=== PATIENT | male | born 2005 | race Caucasian/White ===

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

== ENCOUNTER 2024-11-15 00:20 | Emergency (ER) | payer OTHER, SELFPAY ==
--- NOTE | ~2024-11-15 | CT_ITS ---
EXAMINATION: CT brain wo con DATE: 11/15/2024 03:21 INDICATION: Head injury. TECHNIQUE: Computed tomography (CT) of the head was performed without intravenous contrast. The mA wa s adjusted according to patient size. Iterative reconstruction technique was employed. The dose-lengt h product was 681.00 mGy-cm. COMPARISON: None FINDINGS: There is no intracranial hemorrhage, acute infarction, or abnormal intracranial mass lesion . The ventricles are normal in size. The orbits are normal. There is mild mucosal thickening in the p aranasal sinuses. The mastoid air cells are normal. IMPRESSION: 1. Normal brain. Reviewed, dictated and finalized at location A. CHBOARD INSPECTOR IMPRESSION: 1. Normal brain.
[2024-11-15 00:23] VITALS: BP 145/68; PULSE 102; RESP 15; TEMP 36.5; O2SAT 100
--- NOTE | 2024-11-15 02:35 | ED.GENADULT ---
HPI - General Adult General Chief complaint: Head Injury Stated complaint: concussion Time Seen by Provider: 11/15/24 02:11 History of Present Illness HPI narrative: 18-year-old male presenting to the emergency department for evaluation for a head injury. Patient was snowboarding he wiped out and struck his head. Patient was not wearing a helmet. Patient does report loss of consciousness. Patient does complain headache and body aches. Related Data Allergies Allergy/AdvReac Type Severity Reaction Status Date / Time No Known Allergies Allergy Verified 11/15/24 03:39 Review of Systems Review of Systems: All systems reviewed & are unremarkable except as noted in HPI and below PMFSH Past Medical History Medical History No acute medical problems Family History Family History Other No acute medical problems Social History Social History Smoking status: Never smoker Alcohol intake: never Exam Narrative: APPEARANCE: Well appearing, no pain, no distress, well-nourished. HEAD: normocephalic, atraumatic. EYES: PERRLA/EOMI, conjunctivae clear. NOSE: Normal no drainage EARS:TMS clear with good light reflex. THROAT: Pharynx clear, no exudate. NECK: Supple. No adenopathy, no masses. RESPIRATORY: Airway patent, respirations nonlabored. Clear to auscultation bilaterally, no rales, rhonchi, wheezing. CARDIOVASCULAR: Regular rate and rhythm without murmurs rubs or gallops. ABDOMINAL: Soft, nontender, nondistended, normal bowel sounds MUSCULOSKELETAL: Moves all extremities. Strength/ROM intact, No edema, No calf tenderness. NEURO: Alert. Cranial nerves II through XII intact. SKIN: Warm, dry. Normal Color Course Vital Signs Vital signs: Vital Signs Temperature 97.7 F 11/15/24 00:23 Pulse Rate 102 H 11/15/24 00:23 Respiratory Rate 15 11/15/24 00:23 Blood Pressure 145/68 H 11/15/24 00:23 Pulse Oximetry 100 11/15/24 00:23 Oxygen Delivery Room Air 11/15/24 00:23 Temperature 97.7 F 11/15/24 00:23 Pulse Rate 81 11/15/24 03:38 Respiratory Rate 17 11/15/24 03:38 Blood Pressure 109/57 L 11/15/24 03:38 Pulse Oximetry 98 11/15/24 03:38 Oxygen Delivery Room Air 11/15/24 00:23 Medical Decision Making MDM Narrative Medical decision making narrative: 18-year-old male presenting emergency department for evaluation for headache dizziness lightheadedness after striking his head while snowboarding. Head CT was negative for acute intracranial abnormality. Vital Signs Vital Signs: Vital Signs Temperature 97.7 F 11/15/24 00:23 Pulse Rate 102 H 11/15/24 00:23 Respiratory Rate 15 11/15/24 00:23 Blood Pressure 145/68 H 11/15/24 00:23 Pulse Oximetry 100 11/15/24 00:23 Oxygen Delivery Room Air 11/15/24 00:23 Temperature 97.7 F 11/15/24 00:23 Pulse Rate 81 11/15/24 03:38 Respiratory Rate 17 11/15/24 03:38 Blood Pressure 109/57 L 11/15/24 03:38 Pulse Oximetry 98 11/15/24 03:38 Oxygen Delivery Room Air 11/15/24 00:23 Discharge Plan Discharge Clinical Impression: Closed head injury Patient Disposition: Home, Self-Care Condition: Stable Instructions: Antibiotic Form, Head Injury (ED) Additional Instructions: Follow head injury guidelines. Wearing helmet while snowboarding. Tylenol and ibuprofen for pain control. Have close follow-up with your primary care physician. Patient Language: Nepali Prescriptions: No Action penicillin V potassium 500 mg tablet 500 mg PO Q12H 10 Days Qty: 20 0RF prednisone 20 mg tablet 20 mg PO DAILY Qty: 5 0RF Follow-up/Referrals: PHYSICIAN,BRUSH FABRICATION SUPERVISOR [Primary Care Provider] -
[2024-11-15 03:38] VITALS: BP 109/57; PULSE 81; RESP 17; O2SAT 98
--- OUTSIDE RECORDS SUMMARY | 2024-11-22 00:15 | XMS_ITS | Clinical Summary ---
Author Organization [facility] Address [address] [place] [address] Care Team Providers Care Customer Service Associate Name Role Phone Lauro Oquendo MD Primary Care Provider [phone] Source Comments [facility],non-owned Affiliates and Associated Physician Practices is amultiple site organization consisting of ambulatory clinics and hospital sitesin [place], [place], [place] and [place]. This disclosure is being madepursuant to the Care Everywhere program and may not contain all information available regarding this patient. Last updated 18.[facility] Allergies No known active allergies Medications * Be aware that medications may not be up to date on this document. Alwaysverify current medications with the patient. Medication Sig Dispensed Refills Start Date End Date Status olopatadine (PATADAY) 0.2 % ophthalmic solution Instill 1 Drop into both eyes daily. 1 Bottle 3 03/09/2011 Active albuterol HFA (VENTOLIN HFA) 8 gram inhaler Inhale 2 Puffs by mouth every 4 hours as needed for Wheezing and Cough. 1 Inhaler 1 03/15/2011 Active cetirizine (ZYRTEC ALLERGY) 10 MG tablet Take 1 Tab by mouth at bedtime. 30 Tab 5 06/03/2013 Active fluticasone hfa 44 (FLOVENT HFA) 44 MCG/ACT inhaler Inhale 2 Puffs by mouth 2 times daily. Always use with spacer. Rinse mouth after each use. 1 Inhaler 5 06/03/2013 Active albuterol HFA (PROVENTIL;VENTOLIN; PROAIR) 108 (90 BASE) MCG/ACT inhaler Inhale 2 Puffs by mouth every 4 hours as needed (per asthma action plan.). 1 Inhaler 2 06/03/2013 Active ketotifen (ZADITOR) 0.025 % ophthalmic solution Instill 1 Drop into both eyes 2 times daily as needed (itchy, watery eyes). 10 mL 5 06/03/2013 Active Active Problems Problem Noted Date Diagnosed Date Closed greenstick fracture o f shaft of ulna with routine healing 04/24/2017 Closed greenstick fracture of shaft of right uln a 03/29/2017 Allergic conjunctivitis 03/10/2012 Allergic rhinitis 03/10/2012 Overview (06/03/2013): SPT +: T/G/HDM on 06/03/13. Asthma, moderate persistent 03/16/2011 Immunizations Name Administration Dates Next Due INFLUENZA VACCINE, TRIV. (AF LURIA, FLUZONE TRIVALENT; 6MO+) (IIV3) 10/05/2011 DTaP VACCINE IM (6wk-6yrs) 10/05/2008,,10/05/2004,2003,04/18/2004 HEP A PEDS 2 DOSE 02/07/2007,02/19/2006 HEP B VACCINE, PED/ADOL 10/05/2004,07/05,04/18/2004,2003 HIB BOOSTER 08/14/2005, 4,07/05/2004,2003 INFLUENZA 10/05/2008 MMR 07/22/2008,12/11/2004 PNEUMOCOCCAL CONJ, PEDS 12/11/2004,10/05,07/05/2004,2003 POLIO IPV 10/05/2008, 4,07/05/2004,2003 PPD 12/11/2004 VARICELLA 07/22/2008,08/14/2005 Social History Tobacco Use Types Packs/Day Years Used Date Smoking Tobacco: Never Assessed Sex and Gender Information Value Date Recorded Sex Assigned at Not on file Gender Identity Not on file Sexual Orientation Not on file Last Filed Vital Signs Vital Sign Reading Time Taken Comments Blood Pressure 98/52 07/21/2013 10:30 PM CDT Pulse 84 07/21/2013 10:30 PM CDT Temperature 36.6 ??C (97.8 ??F) 07/21/2013 10:30 PM C DT Respiratory Rate 20 07/21/2013 10:30 PM CDT Oxygen Saturation 100% 07/21/2013 8:51 PM CDT Inhaled Oxygen Concentration - - Weight 25.9 kg (57 lb 1.6 oz) 07/21/2013 8:51 PM CDT Height 130.4 cm (4' 3.34 ) 06/03/2013 8:49 AM CD T Body Mass Index - - Plan of Treatment Health Maintenance Due Date Last Done Comments PNEUMOCOCCAL VACCINE (1 of 1 - PPSV23 or PCV20) 2009 12/11/2004, 10/05/2004, 07/05/2004, Additional history exists DTAP/TDAP/TD VACCINES (6 - Tdap) 2014 10/05/2008, 08/14/2005, 10/05/2004, Additional history exists HIV SCREENING 2018 HPV VACCINE (1 - Male 3-dose series) 2018 HEPATITIS C SCREENING 11/29/2021 DEPRESSION SCREENING 11/25/2023 COVID-19 VACCINE ( - season) 2024 INFLUENZA VACCINE (#1) 2024 10/05/2011, 2007 ZOSTER VACCINE (1 of 2) 2053 HEPATITIS B VACCINE Completed 10/05/2004, 07/05/2004, 04/18/2004, Additional history exists HIB VACCINE Completed 08/14/2005, 09/25, 07/05/2004, Additional history exists MENINGOCOCCAL VACCINE Aged Out No marcello chrissy eligible based on patient's age to complete this topic Care Teams Customer Service Associate Relationship Specialty Start Date End Date Lauro Oquendo MD [address] [place] [id number] PCP - General Pediatrics 06/03/13
--- OUTSIDE RECORDS SUMMARY | 2024-11-22 00:15 | XMS_ITS | Encounter Summary ---
Author Organization [facility] Address [address] [place] [address] Care Team Providers Care Java Scala Developer Name Role Phone Lauro Oquendo MD Primary Care Provider [phone] Reason for Visit * Reason Comments Follow-up Right arm injury Encounter Details Date Type Department Care Team (Latest Contact Info) Description 04/24/2017 12:46 PM CDT - 04/24/2017 1:08 PM CDT Hospital Encounter [facility] Pediatrics - Orthopedics [address] [place] [address] Rubi Ramirez PA [facility] [place] [address] Discharge Disposition: Home or Self Care Social History Tobacco Use Types Packs/Day Years Used Date Smoking Tobacco: Never Assessed Sex and Gender Information Value Date Recorded Sex Assigned at Not on file Gender Identity Not on file Sexual Orientation Not on file documented as of this encounter Discharge Instructions * Patient Instructions* Rubi Ramirez PA - 04/24/2017 1:40 PM CDT ORTHOPAEDIC CLINIC DISCHARGE INSTRUCTIONS SHEET Follow Up: As needed. Tylenol and Ibuprofen (over the counter medication) may be used per instructions. Exos splint with activities until 3 months post injury. If you have any questions or concerns in the interim, or if you need to schedule surgery for your child, you may contact our orthopedic office at . If you need to make a clinic appointment, please call . documented in this encounter Medications at Time of Discharge Medication Sig Dispensed Refills Start Date End Date albuterol HFA (PROVENTIL;VENTOLIN;PROA IR) 108 (90 BASE) MCG/ACT inhaler Inhale 2 Puffs by mouth every 4 hours as needed (per asthma action plan.). 1 Inhaler 2 06/03/2013 albuterol HFA (VENTOLIN HFA) 8 gram inhaler Inhale 2 Puffs by mouth every 4 hours as needed for Wheezing and Cough. 1 Inhaler 1 03/15/2011 cetirizine (ZYRTEC ALLERGY) 10 MG tablet Take 1 Tab by mouth at bedtime. 30 Tab 5 06/03/2013 fluticasone hfa 44 (FLOVENT HFA) 44 MCG/ACT inhaler Inhale 2 Puffs by mouth 2 times daily. Always use with spacer. Rinse mouth after each use. 1 Inhaler 5 06/03/2013 ketotifen (ZADITOR) 0.025 % ophthalmic solution Instill 1 Drop into both eyes 2 times daily as needed (itchy, watery eyes). 10 mL 5 06/03/2013 olopatadine (PATADAY) 0.2 % ophthalmic solution Instill 1 Drop into both eyes daily. 1 Bottle 3 03/09/2011 documented as of this encounter Progress Notes * Rubi Ramirez PA - 04/24/2017 1:22 PM CDT PEDIATRIC ORTHOPAEDIC CLINIC NOTE NAME: Santiago Torres DATE OF SERVICE: 04/24/2017 DATE: 2005 PCP: Lauro Oquendo MD HISTORY: Santiago Torres is a 11 y.o. 4 m.o. male who presents 5 week(s) status post a right distal ulna fracture. Santiago Torres was treated with short arm cast and presents for follow up evaluation. The patient rates his pain as a 0 out of 10. The patient denies new onset of numbness in his upper extremities. MEDICATIONS: Current Outpatient Prescriptions: ??? cetirizine (ZYRTEC ALLERGY) 10 MG tablet, Take 1 Tab by mouth at bedtime., Disp: 30 Tab, Rfl: 5 ??? fluticasone hfa 44 (FLOVENT HFA) 44 MCG/ACT inhaler, Inhale 2 Puffs by mouth 2 times daily. Always use with spacer. Rinse mouth after each use., Disp: 1 Inhaler, Rfl: 5 ??? albuterol HFA (PROVENTIL;VENTOLIN;PROAIR) 108 (90 BASE) MCG/ACT inhaler, Inhale 2 Puffs by mouth every 4 hours as needed (per asthma action plan.)., Disp: 1 Inhaler, Rfl: 2 ??? ketotifen (ZADITOR) 0.025 % ophthalmic solution, Instill 1 Drop into both eyes 2 times daily asneeded (itchy, watery eyes)., Disp: 10 mL, Rfl: 5 ??? albuterol HFA (VENTOLIN HFA) 8 gram inhaler, Inhale 2 Puffs by mouth every 4 hours as needed for Wheezing and Cough., Disp: 1 Inhaler, Rfl: 1 ??? olopatadine (PATADAY) 0.2 % ophthalmic solution, Instill 1 Drop into both eyes daily., Disp: 1 Bottle, Rfl: 3 ALLERGIES: Allergies as of 04/24/2017 ??? (No Known Allergies) IMMUNIZATIONS: Immunization status: stated as current, but no records available. PHYSICAL EXAMINATION: General appearance: alert, cooperative, no distress. He has good head control. No rashes or abnormal dyspigmentation Extremities: The uninjured left upper extremity was examined and demonstrated normal skin, normal range of motion and alignment of all joint, normal motor, sensory and vascular examination, and was without pain. It was used for comparison when examining the injured right upper extremity. General appearance: no acute distress The examination was performed out of splint/cast Skin: normal Swelling: none Tenderness: none. Deformity: No ROM: limited at the wrist and forearm slightly, consistent with cast immobilization Gait: normal Neurological Exam: normal Vascular Exam: normal RADIOGRAPHS: AP and lateral xrays of the right forearm were taken and assessed today. -Radiographic Assessment: They show distal ulna shaft fracture healing in good alignment. ASSESSMENT: 1. Closed greenstick fracture of shaft of right ulna with routine healing, subsequent encounter PLAN: We recommend the patient discontinue his cast and go into an Exos splint today. He may removewhile at home but will wear when active until he is 3 months post injury. he may now gradually resume all activities as tolerated (with Exos splint on). If he has any difficulties returning to activities, or any pain/problems in 3-4 weeks, we recommend they return to clinic. If he is doing well at that point, they do not need to follow up for this injury. The family was understanding of this planand will follow up PRN. documented in this encounter Plan of Treatment Not on file documented as of this encounter Visit Diagnoses Diagnosis Closed greenstick fracture of shaft of right ulna with routine healing, subsequent encounter- Primary documented in this encounter Care Teams Java Scala Developer Relationship Specialty Start Date End Date Lauro Oquendo MD [address] [place] [phone] PCP - General Pediatrics 06/03/13 documented as of this encounter
--- OUTSIDE RECORDS SUMMARY | 2024-11-22 00:15 | XMS_ITS | Patient Health Summary ---
Author Organization [facility] Address [address] [place] [address] Care Team Providers Care Analytics Manager Name Role Phone Lauro Oquendo MD Primary Care Provider [phone] Note from [facility],non-owned Affiliates and Associated Physician Practices is amultiple site organization consisting of ambulatory clinics and hospital sitesin [place], [place] and [place]. This disclosure is being madepursuant to the Care Everywhere program and may not contain all information available regarding this patient. Last updated 18.[facility] Allergies No known active allergies Medications * Be aware that medications may not be up to date on this document. Alwaysverify current medications with the patient. * olopatadine (PATADAY) 0.2 % ophthalmic solution(Started 03/09/2011) Instill 1 Drop into both eyes daily. 3 refills left * albuterol HFA (VENTOLIN HFA) 8 gram inhaler(Started 03/15/2011) Inhale 2 Puffs by mouth every 4 hours as needed for Wheezing and Cough. 1 refill left * cetirizine (ZYRTEC ALLERGY) 10 MG tablet(Started 06/03/2013) Take 1 Tab by mouth at bedtime. 5 refills left * fluticasone hfa 44 (FLOVENT HFA) 44 MCG/ACT inhaler(Started 06/03/2013) Inhale 2 Puffs by mouth 2 times daily. Always use with spacer. Rinse mouth after each use. 5 refills left * albuterol HFA (PROVENTIL;VENTOLIN;PROAIR) 108 (90 BASE) MCG/ACT inhaler (Started 06/03/2013) Inhale 2 Puffs by mouth every 4 hours as needed (per asthma action plan.). 2 refills left * ketotifen (ZADITOR) 0.025 % ophthalmic solution(Started 06/03/2013) Instill 1 Drop into both eyes 2 times daily as needed (itchy, watery eyes). 5 refills left Active Problems Problem Noted Date Diagnosed Date Closed greenstick fracture o f shaft of ulna with routine healing 04/24/2017 Closed greenstick fracture of shaft of right uln a 03/29/2017 Allergic conjunctivitis 03/10/2012 Allergic rhinitis 03/10/2012 Asthma, moderate persistent 03/16/2011 Immunizations * INFLUENZA VACCINE, TRIV. (AFLURIA, FLUZONE TRIVALENT; 6MO+) (IIV3)(Given 10/05/2011) * DTaP VACCINE IM (6wk-6yrs)(Given 10/05/2008, 08/14/2005, 10/05/2004, 07/05/2004, 04/18/2004) * HEP A PEDS 2 DOSE(Given 02/07/2007, 02/19/2006) * HEP B VACCINE, PED/ADOL(Given 10/05/2004, 07/05/2004, 04/18/2004, 2003) * HIB BOOSTER(Given 08/14/2005, 10/05/2004, 07/05/2004, 04/18/2004) * INFLUENZA(Given 10/05/2008) * MMR(Given 07/22/2008, 12/11/2004) * PNEUMOCOCCAL CONJ, PEDS(Given 12/11/2004, 10/05/2004, 07/05/2004, 04/18/2004) * POLIO IPV(Given 10/05/2008, 10/05/2004, 07/05/2004, 04/18/2004) * PPD(Given 12/11/2004) * VARICELLA(Given 07/22/2008, 08/14/2005) Social History Tobacco Use Types Packs/Day Years [...] CD T Body Mass Index - - Procedures * XR FOREARM RIGHT 2VW OR MORE(Performed 04/24/2017) Performed for Closed greenstick fracture of shaft of right ulna, initial encounter * CT HEAD WO CONTRAST(Performed 07/21/2013) Performed for Headache * BEDSIDE SPIROMETRY(Performed 06/03/2013) * AMB REQUEST FOR SUPPLY/EQUIP(Performed 03/24/2012) * CULTURE STREP GROUP A(Performed 03/10/2012) Performed for Acute pharyngitis * STREP A SCREEN - POINT OF CARE (AMB)(Performed 03/10/2012) Performed for Acute pharyngitis * STREP A SCREEN - POINT OF CARE (AMB)(Performed 06/06/2011) Performed for Viral pharyngitis * AMB REQUEST FOR SUPPLY/EQUIP(Performed 04/05/2011) * REF LAB-TEST IN [facility] MICROBIOLOGY(Performed 03/09/2011) * CULTURE THROAT(Performed 03/09/2011) * CULTURE RESPIRATORY(Performed 03/09/2011) Performed for Acute pharyngitis * STREP A SCREEN - POINT OF CARE (AMB)(Performed 03/09/2011) Performed for Acute pharyngitis * URINALYSIS - POINT OF CARE(Performed 01/06/2010) Performed for Abdominal Pain, Generalized * LEAD BLOOD(Performed 07/04/2009) Results * XR FOREARM 2 VW RIGHT (04/24/2017 1:22 PM CDT) Anatomical Region Laterality Modality Upper Extremity Radiographic Giovanna ging 04/24/2017 1:23 PM CDT Impressions 04/24/2017 1:53 PM CDT Healing angulated distal diaphyseal ulnar fracture. Dictated by Estuardo Muro MD (residential team leader). I, Tresa Rodriguez, have personally reviewed the images and I agree with this report. Narrative 04/24/2017 1:53 PM CDT EXAMINATION: Right forearm, 2 views. HISTORY: 11-year-old male with left ulnar fracture. COMPARISON: No prior studies available for comparison. FINDINGS: There is a minimally displaced fracture of the distal ulnar diaphysis, with apex radial angulation. Bridging callus formation and periosteal reaction indicating healing reaction. No other acute fractures are identified. The joint spaces are preserved. Radiocapitellar alignment is intact. Bone mineralization is normal. There is no soft tissue swelling. Procedure Note Tresa Rodriguez MD - 04/24/2017 EXAMINATION: Right forearm, 2 views. HISTORY: 11-year-old male with left ulnar fracture. COMPARISON: No prior studies available for comparison. FINDINGS: There is a minimally displaced fracture of the distal ulnar diaphysis, with apex radial angulation. Bridging callus formation and periosteal reaction indicating healing reaction. No other acute fractures are identified. The joint spaces are preserved. Radiocapitellar alignment is intact. Bone mineralization is normal. There is no soft tissue swelling. IMPRESSION Healing angulated distal diaphyseal ulnar fracture. Dictated by Estuardo Muro MD (residential team leader). I, Tresa Rodriguez, have personally reviewed the images and I agree with this report. Joaqíun CUELLAR-Kerri DIAGNOSTIC IMAGING O RDERABLES * CT HEAD NON CONTRAST (07/21/2013 10:33 PM CDT) Anatomical Region Laterality Modality Head Computed Tomogra phy 07/22/2013 7:10 AM CDT Impressions 07/22/2013 7:14 AM CDT 1. No acute intracranial process. 2. Moderate bilateral maxillary and sphenoid sinusitis. Preliminary report made by Dr. Cortes to Dr. Madrigal on 07/21/2013 at 2244. Narrative 07/22/2013 7:14 AM CDT EXAMINATION: Computed tomography (CT) of the head without contrast HISTORY: Headache. TECHNIQUE: CT of the head was performed without contrast according to standard protocol. FINDINGS: No prior study is available for comparison. No acute intra- or extra-axial fluid collections are identified. The ventricles are of normal size, shape, and morphology. The basal cisterns are patent. No mass effect or midline shift is seen. The interiano-white matter differentiation is normal. Moderate mucosal thickening is noted in the maxillary and sphenoid sinuses and mild mucosal thickening in the ethmoid air cells. Minimal fluid in the mastoid air cells. Otherwise, the visualized Portions of the orbits, paranasal sinuses, and mastoids appear normal. No acute fracture is identified. Procedure Note Stan Soni MD - 07/22/2013 EXAMINATION: Computed tomography (CT) of the head without contrast HISTORY: Headache. TECHNIQUE: CT of the head was performed without contrast according to standard protocol. FINDINGS: No prior study is available for comparison. No acute intra- or extra-axial fluid collections are identified. The ventricles are of normal size, shape, and morphology. The basal cisterns are patent. No mass effect or midline shift is seen. The interiano-white matter differentiation is normal. Moderate mucosal thickening is noted in the maxillary and sphenoid sinuses and mild mucosal thickening in the ethmoid air cells. Minimal fluid in the mastoid air cells. Otherwise, the visualized Portions of the orbits, paranasal sinuses, and mastoids appear normal. No acute fracture is identified. IMPRESSION 1. No acute intracranial process. 2. Moderate bilateral maxillary and sphenoid sinusitis. Preliminary report made by Dr. Cortes to Dr. Madrigal on 07/21/2013 at 2244. Estee Pierce MD CT ORDERABLES * AMB REQUEST FOR SUPPLY/EQUIP (03/24/2012) Only the most recent of2 resultswithin the time period is included. Sangeeta Robertson MD GENERAL SUPPLY ORDER CHAMP * CULTURE STREP GROUP A (03/10/2012 10:22 AM CDT) Culture Strep A [facility] Comment: ??STREPTOCOCCUS, GROUP A CULTURE ?MICRO NUMBER: ?[id number] ??TEST STATUS: ? FINAL ??SPECIMEN SOURCE: ?? THROAT ??SPECIMEN QUALITY: ??ADEQUATE ??RESULT: ?No beta hemolytic Streptococci isolated Test Performed at: [facility] [address] ??[id number] RENETTA BALL DO Miscellaneous samples (specimen) ENTIRE THROAT (SURFACE REGION OF NECK) / Unknown 03/10/2012 10:22 AM CDT 03/10/2012 11:01 PM CDT Sangeeta Robertson MD LAB - MICROBIOLOGY O BAUDILIO Performing Organization Address [facility] de Phone Number [facility] [address] [place] [address] * STREP A SCREEN - POINT OF CARE (AMB) (03/10/2012 10:07 AM CDT) Only the most recent of3 resultswithin the time period is included. Strep A Rapid POCT Negative Negative Strep A Internal Control NEGATIVE - POSITIVE Throat swab (specimen) ENTIRE THROAT (SURFACE REGION OF NECK) / Unknown 03/10/2012 10:07 AM CDT Sangeeta Robertson MD LAB - POINT OF CARE ORDERABLES * CULTURE THROAT (03/09/2011 1:15 PM CDT) Culture [facility] Comment: ??CULTURE, THROAT ?MICRO NUMBER: ?[id number] ??TEST STATUS: ? FINAL ??SPECIMEN SOURCE: ?? THROAT ??SPECIMEN QUALITY: ??ADEQUATE ??RESULT: ?Growth of normal oropharyngeal jerod Test Performed at: [facility] [address] [place], [place] ??[address] RENETTA BALL DO 03/09/2011 1:15 PM CDT 03/09/2011 9:19 PM CDT Sangeeta Robertson MD LAB - MICROBIOLOGY O BAUDILIO Performing Organization Address [facility] Co de Phone Number [facility] [address] [place] [address] * CULTURE RESPIRATORY (03/09/2011 1:15 PM CDT) Culture [facility] Comment: ??CULTURE, SPUTUM/LOWER RESPIRATORY ?MICRO NUMBER: ?[id number] ??TEST STATUS: ? FINAL ??SPECIMEN SOURCE: ?? THROAT ??SPECIMEN QUALITY: ??INADEQUATE ??GRAM STAIN: ?Test not performed. No suitable specimen received. ??RESULT: ?Test not performed. No suitable specimen received. Test Performed at: [facility] [address] [place], [place] ??[address] RENETTA BALL DO ENTIRE THROAT (SURFACE REGION OF NECK) / Unknown 03/09/2011 1:15 PM CDT 03/09/2011 9:19 PM CDT Sangeeta Robertson MD LAB - MICROBIOLOGY O RDERABLES [facility] [address] [place] [address] * URINALYSIS - POINT OF CARE (01/06/2010 9:27 AM KILN HEAD HOUSE OPERATOR) Clarity UA POCT Color UA POCT Leukocyte UA Negative Nitrite UA POCT Negative Urobilinogen UA POCT 0.1 - 1.0 EU/dL Protein UA POCT trace Negative pH UA 5 5.0 - 8.0 pH units Blood UA Negtive Specific [place] UA POCT 1.025 1.002 - 1.030 Ketone UA Negative Bilirubin UA POCT Negative Glucose UA Negative Urine specimen (specimen) URINE / Unknown Sangeeta Robertson MD LAB - POINT OF CARE ORDERABLES * LEAD BLOOD (07/04/2009 3:29 PM CDT) Lead Blood (Venous) <3 mcg/dL [facility] Comment: CDC ACTION CLASSES FOR CHILDREN ?(LESS THAN 6 YEARS OF AGE): CDC CLASS* ? BLOOD LEAD CONCENTRATION (MCG/DL) ? I ?<10 ? IIA ?10-14 ? IIB ?15-19 ? III ?20-44 ?IV ?45-69 ? V ?>69 *REFER TO CURRENT CDC GUIDELINES FOR COMMENTS AND INTERVENTIONS RECOMMENDED FOR EACH CLASS. Collection Sample VENOUS [facility] Comment: Test Performed at: [email or web address] ??[phone] MELANIE AGOSTO MD 07/04/2009 3:29 PM CDT 07/04/2009 3:31 PM CDT Sangeeta Robertson MD LAB - CHEMISTRY LOKESH CHENG [facility] [address] [place] [address] Care Teams Analytics Manager Relationship Specialty Start Date End Date Lauro Oquendo MD [address] [place] [phone] PCP - General Pediatrics 06/03/13
--- OUTSIDE RECORDS SUMMARY | 2024-11-22 00:15 | XMS_ITS | Referral Summary ---
Author Organization [facility] Address [address] [facility] [place] [address] Care Team Providers Care Lead Electrician Name Role Phone Lauro Oquendo MD Primary Care Provider [phone] Source Comments [facility],non-owned Affiliates and Associated Physician Practices is amultiple site organization consisting of ambulatory clinics and hospital sitesin [place], [place], [place] and [place]. This disclosure is being madepursuant to the Care Everywhere program and may not contain all information available regarding this patient. Last updated 18.[facility] Allergies No known active allergies Medications * [...] Mass Index - - Plan of Treatment Not on file Care Teams Lead Electrician Relationship Specialty Start Date End Date Lauro Oquendo MD [address] [place] [address] PCP - General Pediatrics 06/03/13
--- OUTSIDE RECORDS SUMMARY | 2024-11-22 00:15 | XMS_ITS | Encounter Summary ---
Author Organization [facility] Address [address] [place] [address] Care Team Providers Care Salad Chef Name Role Phone Lauro Oquendo MD Primary Care Provider [phone] Encounter Details Date Type Department Care Team (Latest Contact Info) Description 04/24/2017 1:09 PM CDT - 04/24/2017 11:59 PM CDT Hospital Encounter [facility] Pediatrics - Radiology [address] [place] [address] Rubi Ramirez, POLO [address] [place] [address] Discharge Disposition: Home or Self Care Social History Tobacco Use Types Packs/Day Years Used Date Smoking Tobacco: Never Assessed Sex and Gender Information Value Date Recorded Sex Assigned at Not on file Gender Identity Not on file Sexual Orientation Not on file documented as of this encounter Medications at Time of Discharge [...] 3 03/09/2011 documented as of this encounter Plan of Treatment Not on file documented as of this encounter Procedures Procedure Name Priority Date/Time Associated Diagnosis Comments XR FOREARM RIGHT 2VW OR MORE Routine 04/24/2017 1:22 PM CDT Closed greenstick fracture of shaft of right ulna, initial encounter documented in this encounter Results * XR FOREARM 2 VW RIGHT (04/24/2017 1:22 PM CDT) Anatomical Region Laterality Modality Upper Extremity Radiographic Giovanna ging 04/24/2017 1:23 PM CDT Impressions 04/24/2017 1:53 PM CDT Healing angulated distal diaphyseal ulnar fracture. Dictated by Estuardo Muro MD (radiology scheduler). I, Tresa Rodriguez, have personally reviewed the [...] ulnar fracture. Dictated by Estuardo Muro MD (radiology scheduler). I, Tresa Rodriguez, have personally reviewed the images and I agree with this report. Joaquín CUELLAR-Kerri DIAGNOSTIC IMAGING O RDERABLES documented in this encounter Visit Diagnoses Diagnosis Closed greenstick fracture of shaft of right ulna, initial encounter Greenstick fracture of shaft of right ulna with routine healing Aftercare for healing traumatic fracture of lower arm documented in this encounter Care Teams Salad Chef Relationship Specialty [place] [address] [place] [phone] PCP - General Pediatrics 06/03/13 documented as of this encounter
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
--- OUTSIDE RECORDS SUMMARY | 2024-11-22 00:16 | XMS_ITS | Encounter Summary ---
Author Organization [facility] Address [address] [facility] [place] [address] Care Team Providers Care Linux Programmer Name Role Phone Unavailable Primary Care Provider Unavailabl e Reason for Visit * Reason Comments Cough bad cough ; day and night; Sore Throat school nurse states throat red and swollen Encounter Details Date Type Department Care Team (Late st Contact Info) Description 12/21/2010 11:00 AM TRAINING MGR Office Visit [facility] - Pediatrics [address] [place] [phone] Barb Gamboa MD [address] [place] [phone] Acute upper respiratory infections of unspecified site (Primary Dx); Extrinsic asthma, unspecified (HCC) Social History Tobacco Use Types Packs/Day Years Used Date Smoking Tobacco: Never Assessed Sex and Gender Information Value Date Recorded Sex Assigned at Not on file Gender Identity Not on file Sexual Orientation Not on file documented as of this encounter Last Filed Vital Signs Vital Sign Reading Time Taken Comments Blood Pressure - - Pulse - - Temperature 36.9 ??C (98.5 ??F) 12/21/2010 11:[address] Respiratory Rate - - Oxygen Saturation - - Inhaled Oxygen Concentration - - Weight 20.9 kg (46 lb) 12/21/2010 11:20 AM TRAINING MGR Height - - Body Mass Index - - documented in this encounter Progress Notes * Barb Gamboa MD - 12/21/2010 1:06 PM CST Santiago Torres. 5 y.o., male, here for evaluation of sore throat, and cough. Symptoms started yesterday. Fever: No Runny Nose: Yes, clear Congestion: Yes Cough: Yes, dry Headache: No Abd Pain: No Rash: No Sleep: good Appetite: fair Fluids: good Sick contacts with Strep: No Medications: albuteral-mom gave 2 puffs this am middle school resource teacher. Mom unsure about when to start using albuteral PE: Temp(Src) 98.5 ??F (Temporal artery) Wt 46 lb (20.865 kg) Alert NAD SHEENT: Skin: no observable rash Ears: Left: Normal Right: Normal Throat:normal Tonsils: normal Neck: supple, nontender posterior LAD Heart: Normal PMI. regular rate and rhythm, normal S1, S2, no murmurs or gallops. Lungs: Clear to auscultation and Normal breath sounds bilaterally Peak flow 170 (green) Impression: 1 URI with sore throat. 2. Asthma hx Plan: 1. Supportive care Fever control and encourage fluids. Follow up prn. Discussed asthma action plan and peak flow meter given. Advised to monitor it at home. If dropping or sx worsen, call office, would Rx prednisone at that point. NING MGR * Barb Gamboa MD - 12/21/2010 11:23 AM CST SUBJECTIVE: Santiago Torres is a 5 y.o.brought by mother who complains of sore throat for 2 day(s). Fever: No Headache:No Stomach ache:No URI symptoms: Yes NING MGR documented in this encounter Plan of Treatment Not on file documented as of this encounter Visit Diagnoses Diagnosis Acute upper respiratory infections of unspecified site- Primary Extrinsic asthma, unspecified (HCC) Extrinsic asthma, unspecified documented in this encounter
--- OUTSIDE RECORDS SUMMARY | 2024-11-22 00:16 | XMS_ITS | Encounter Summary ---
Author Organization [facility] Address [address] [facility] [place] [address] Care Team Providers Care Manager Of Compliance Name Role Phone Unavailable Primary Care Provider Unavailabl e Reason for Visit * Reason Comments Cough barky cough, at rand om past 2 days Sore Throat woke up screaming wi th throat pain last night [facility] both eyes with redne ss and purulent drainage this AM Encounter Details Date Type Department Care Team (Late st Contact Info) Description 08/04/2010 3:15 PM CDT Office Visit [facility] - Pediatrics [address] [place] [phone] Angelica Bruno MD [address] [place] [phone] Cough (Primary Dx); Unspecified Acute Conjunctivitis Social History Tobacco Use Types Packs/Day Years Used Date Smoking Tobacco: Never Assessed Sex and Gender Information Value Date Recorded Sex Assigned at Not on file Gender Identity Not on file Sexual Orientation Not on file documented as of this encounter Progress Notes * Angelica Bruno MD - 08/05/2010 10:41 AM CDTAddended by: ANGELICA BRUNO on: 08/05/2010 Modules accepted: Orders * Angelica Bruno MD - 08/04/2010 4:42 PM CDTAddended by: ANGELICA BRUNO on: 08/04/2010 Modules accepted: Orders * Angelica Bruno MD - 08/04/2010 3:45 PM CDT SANTIAGO ASENCIO is a 4 y.o. male with asthma who presents today for a complaint of cough and sore throat. Cough started 2 days ago. Described as harsh. Associated with fever? No Associated with URI sx? No -denies runny nose, congestion Post nasal drainage? unsure Wheezing? No Had sore throat this am that was severe. Hurt due to coughing. Intervention tried: cough syrup Has also had redness to both eyes and goop from eyes. Peak flow 160 (green) PE: Gen-well appearing HEENT- throat with erythema, cobblestoning. TM's pearly. Eyes-mild injection inferior of both sclera. No drainage seen currently. Resp- CTA. No wheeze CV nL S1S2 without murmur Abdomen-soft, nontender Impression: 1.Cough-?croup vs asthma cough 2. conjuctivitis Plan:1. Rx: orapred. Trial of inhaler for cough, if helps continue to use. If not, more likely croup type illness. 2. Rx: vigamox documented in this encounter Plan of Treatment Not on file documented as of this encounter Visit Diagnoses Diagnosis Cough- Primary Acute conjunctivitis, unspecified documented in this encounter
--- OUTSIDE RECORDS SUMMARY | 2024-11-22 00:16 | XMS_ITS | Encounter Summary ---
Author Organization [facility] Address [address] [place] [address] Care Team Providers Care Handy Man Name Role Phone Unavailable Primary Care Provider Unavailabl e Encounter Details Date Type Department Care Team (Late st Contact Info) Description 03/09/2011 Orders Only [facility] - Pediatrics [address] [place] [phone] Sangeeta Robertson MD [address] [place] [address] Social History Tobacco Use Types Packs/Day Years Used Date Smoking Tobacco: Never Assessed Sex and Gender Information Value Date Recorded Sex Assigned at Not on file Gender Identity Not on file Sexual Orientation Not on file documented as of this encounter Progress Notes * Abbi Logan RN - 03/13/2011 9:43 AM CDTQuick Note: Phone call placed to patient's home to report negative throat culture results. No answer. Message left reporting the result and to notify office for any further questions or concerns. * Lyubov Sweet RN - 03/13/2011 9:30 AM CDTQuick Note: L/M to call back for results--LB * Sangeeta Robertson MD - 03/13/2011 9:17 AM CDTQuick Note: Please call the parent and let him/her know the results are normal. documented in this encounter Plan of Treatment Pending Results Name Type Priority Associated Diagnoses Date /Time PO REF LAB-TEST IN [facility] Lab 03/09/2011 1:15 PM CDT documented as of this encounter Procedures Procedure Name Priority Date/Time Associated Diagnosis Comments REF LAB-TEST [facility]CRO[facility] 03/09/2011 1:15 PM CDT CULTURE THROAT 03/09/2011 1:15 PM CDT documented in this encounter Results * CULTURE THROAT (03/09/2011 1:15 PM CDT) [facility] Comment: ??CULTURE, THROAT ?MICRO NUMBER: ?[id number] ??TEST STATUS: ? FINAL ??SPECIMEN SOURCE: ?? THROAT ??SPECIMEN QUALITY: ??ADEQUATE ??RESULT: ?Growth of normal oropharyngeal jerod Test Performed at: [email or web address] [address] [place], [place] ??[phone] RENETTA BALL DO 03/09/2011 1:15 PM CDT 03/09/2011 9:19 PM CDT Sangeeta Robertson MD LAB - MICROBIOLOGY O RDERABLES [facility] [address] [place] [address] documented in this encounter Visit Diagnoses Not on filedocumented in this encounter
--- OUTSIDE RECORDS SUMMARY | 2024-11-22 00:16 | XMS_ITS | Encounter Summary ---
Author Organization [facility] Address [address] [place] [address] Care Team Providers Care Cartographic Designer Name Role Phone Unavailable Primary Care Provider Unavailabl e Reason for Visit * Reason Comments Asthma Encounter Details Date Type Department Care Team (Latest Contact Info) Description 03/09/2011 1:00 PM CDT Office Visit [facility] - Pediatrics [address] [place] [address] [address] [place] [phone] Sangeeta Robertson MD [address] [place] [address] Unspecified asthma, with exacerbation (HCC) (Primary Dx); Acute pharyngitis; Allergic Conjunctivitis Social History Tobacco Use Types Packs/Day Years Used Date Smoking Tobacco: Never Assessed Sex and Gender Information Value Date Recorded Sex Assigned at Not on file Gender Identity Not on file Sexual Orientation Not on file documented as of this encounter Last Filed Vital Signs Vital Sign Reading Time Taken Comments Blood Pressure - - Pulse 116 03/09/2011 1:08 PM CDT Temperature 37.1 ??C (98.8 ??F) 03/09/2011 1:08 PM CD T Respiratory Rate - - Oxygen Saturation 98% 03/09/2011 1:08 PM CDT Inhaled Oxygen Concentration - - Weight 22.1 kg (48 lb 12.8 oz) 03/09/2011 1:08 P M CDT Height - - Body Mass Index - - documented in this encounter Progress Notes * Marisela Call RN - 03/12/2011 10:39 AM CDTQuick Note: Spoke with lab. Ordered wrong lab. Ordered resp cx . Do not want it ordered that way. Reordered as routine cx-throat swab . They will run this test. * Sangeeta Robertson MD - 03/12/2011 9:27 AM CDTQuick Note: Please call [facility] to check on the results of throat culture. * Sangeeta Robertson MD - 03/09/2011 1:16 PM CDT 03/09/2011 [facility] Torres [facility] for Kids 4 to 11 Years Old Child's Questions: SCORE: 1. How is your asthma today? 2 2. How much of a problem is your asthma when you run, exercise, Or play sports? 1 3. Do you cough because of your asthma? 1 4. Do you wake up during the night because of your asthma? 2 Parents Questions: 5. During the last 4 weeks, how many days did your child Have any daytime asthma symptoms? 2 6. During the last 4 weeks, how many days did your child wheeze During the day because of asthma? 1 7. During the last 4 weeks, how many days did your child wake Up during the night because of asthma? 1 TOTAL SCORE: 10 * Sangeeta Robertson MD - 03/09/2011 1:08 PM CDT SUBJECTIVE: Santiago Torres is a 5 y.o. male is brought by mother with the complaint of trouble breathing for 2 days. Wheezing: no. URI: Yes, clear runny nose with itchy red eyes and dry cough, especially at night Fever: No Bronchodilator given at home: Yes Activity and Appetite:normal Current asthma medications: albuterol prn. Yesterday Santiago came to his mom and said mom...I....can't breath... She did a peak flow which wasbetween 70-80. She gave him an albuterol puff and it went up to 100. She continued to give him albuterol approx every 10 minutes for the next two hours. After that he appeared well. He is not on any maintenance therapy for his asthma, and he does not take any allergy medications. OBJECTIVE: There were no vitals taken for this visit. General appearance: alert, well appearing, and in no distress. Ears: bilateral TM's and external ear canals normal Nose: normal and patent, no erythema, discharge or polyps Eyes: Sclera white, conjunctiva is cobblestoned Oropharynx: Petechiae on soft palate. Pharynx erythematous Neck: bilateral symmetric anterior adenopathy Lungs: expiratory wheezing noted in all lung de los santos Heart - regular rate and rhythm, normal S1 and S2, no murmurs Extremities: no c/c/e Peak Flow: 130 ASSESSMENT: Asthma - acute exacerbation pharyngitis Allergic conjunctivitis PLAN: Orapred 50mg (1st dose given in office). Albuterol nebulizer treatment given in office. At home continue Orapred for 5 days. Also increase albuterol to 2 puffs (or nebulizer treatment) every 3-4 hours. Follow up for reevaluation and possible initiation of a maintanance inhaler. Pataday eye drops given for allergic conjunctivitis. See orders for this visit as documented in the electronic medical record Send throat culture documented in this encounter Plan of Treatment Not on file documented as of this encounter Procedures Procedure Name Priority Date/Time Associated Diagnosis Comments CULTURE RESPIRATORY Routine 03/09/2011 1 :15 PM CDT Acute pharyngitis STREP A SCREEN - POINT OF CARE (AMB) Routine 03/09/2011 12:20 PM CDT Acute pharyngitis documented in this encounter Results * CULTURE RESPIRATORY (03/09/2011 1:15 PM CDT) Culture [facility] Comment: ??CULTURE, SPUTUM/LOWER RESPIRATORY ?MICRO NUMBER: ?[id number] ??TEST STATUS: ? FINAL ??SPECIMEN SOURCE: ?? THROAT ??SPECIMEN QUALITY: ??INADEQUATE ??GRAM STAIN: ?Test not performed. No suitable specimen received. ??RESULT: ?Test not performed. No suitable specimen received. Test Performed at: [facility] [address] [place], [place] ??[phone] RENETTA BALL DO ENTIRE THROAT (SURFACE REGION OF NECK) / Unknown 03/09/2011 1:15 PM CDT 03/09/2011 9:19 PM CDT Sangeeta Robertson MD LAB - MICROBIOLOGY O RDERABLES [email or web address] [address] [place] [address] * STREP A SCREEN - POINT OF CARE (AMB) (03/09/2011 12:20 PM CDT) Strep A Rapid POCT negative NEGATIVE - POSITVE Strep A Internal Control NEGATIVE - POSITIVE Throat swab (specimen) ENTIRE THROAT (SURFACE REGION OF NECK) / Unknown 03/09/2011 12:20 PM CDT Sangeeta Robertson MD LAB - POINT OF CARE ORDERABLES documented in this encounter Visit Diagnoses Diagnosis Unspecified asthma, with exacerbation (HCC)- Primary Unspecified asthma, with exacerbation Acute pharyngitis Allergic Conjunctivitis Other chronic allergic conjunctivitis documented in this encounter
--- OUTSIDE RECORDS SUMMARY | 2024-11-22 00:16 | XMS_ITS | Encounter Summary ---
Author Organization [facility] Address [address] [place] [address] Care Team Providers Care Sap Developer Name Role Phone Unavailable Primary Care Provider Unavailabl e Reason for Visit * Reason Onset Date Comments Vomiting 12/02/2009 Fever 12/02/2009 Encounter Details Date Type Department Care Team (Late st Contact Info) Description 12/02/2009 Telephone [facility] Medical [facility] - Pediatrics [address] [facility] [address] [place] [phone] Barb Gamboa MD [address] [place] [phone] Vomiting; Fever Social History Tobacco Use Types Packs/Day Years Used Date Smoking Tobacco: Never Assessed Sex and Gender Information Value Date Recorded Sex Assigned at Not on file Gender Identity Not on file Sexual Orientation Not on file documented as of this encounter Miscellaneous Notes * Telephone Encounter - Abbi Logan RN - 12/02/2009 11:59 AM PULLEY WORKER Mom states that pt was fine this am. Notified her while she was at work today, not feeling well. Ptdeveloped fever, 100.5 degrees ax, vomiting this am. Pt denies sore throat, body aches, or any nasal sx. Has had sl cough. Bumped head a couple of times (front and back) last noc while playing. Did not have any loss of consciousness, no sign of bruising, swelling. No mental status changes. Illness probably viral in nature. Discussed vomiting, ORT with Mom per protocol and signs of dehydration. Encourage rest, po fluids. Notify office if sx worsen,change, last beyond expected course, any signs of dehydration. Verbalized understanding and willingness to comply. EY WORKER * Telephone Encounter - Willie Callaway - 12/02/2009 11:23 AM CST VOMITING AND FEVER OF 100.5. SHOULD HE COME IN? EY WORKER documented in this encounter Plan of Treatment Not on file documented as of this encounter Visit Diagnoses Not on filedocumented in this encounter
--- OUTSIDE RECORDS SUMMARY | 2024-11-22 00:16 | XMS_ITS | Encounter Summary ---
Author Organization [facility] Address [address] [place] [address] Care Team Providers Care Community Living Specialist Name Role Phone Unavailable Primary Care Provider Unavailabl e Reason for Visit * Reason Comments Cold Symptoms x3-4 days Cough productive Encounter Details Date Type Department Care Team (Late st Contact Info) Description 10/13/2011 9:10 AM DERMATOLOGICAL SURGEON Office Visit [facility] Medical [facility] - Pediatrics [address] [place] [phone] Sangeeta Robertson MD [address] [place] [phone] URI (upper respiratory infection) (Primary Dx) Social History Tobacco Use Types Packs/Day Years Used Date Smoking Tobacco: Never Assessed Sex and Gender Information Value Date Recorded Sex Assigned at Not on file Gender Identity Not on file Sexual Orientation Not on file documented as of this encounter Last Filed Vital Signs Vital Sign Reading Time Taken Comments Blood Pressure - - Pulse - - Temperature 36.7 ??C (98.1 ??F) 10/13/2011 9:01 AM CS T Respiratory Rate - - Oxygen Saturation - - Inhaled Oxygen Concentration - - Weight 23.3 kg (51 lb 6.4 oz) 10/13/2011 9:01 AM DERMATOLOGICAL SURGEON Height - - Body Mass Index - - documented in this encounter Patient Instructions * Patient Instructions* Sangeeta Robertson MD - 10/13/2011 9:25 AM DERMATOLOGICAL SURGEON Saline drops in nose, bulb suction, vaporizer/ humidifier as needed for congestion. If you child is older than one give plain honey from the jar one tsp as needed for cough. It is a natural cough suppressant and helps to soothe your child's throat. ATOLOGICAL SURGEON documented in this encounter Progress Notes * Sangeeta Robertson MD - 10/13/2011 9:02 AM CST SUBJECTIVE: Santiago Torres is a 5 y.o. male brought by father with complaints of coryza, congestion, sneezing, sore throat, productive cough and clear nasal discharge for 3-4 days Sore Throat :Yes Fever: No normal activity, mood and playfulness, normal appetite and normal fluid intake. OBJECTIVE: Temp(Src) 98.1 ??F (Temporal Artery) Wt 51 lb 6.4 oz (23.315 kg) General appearance: alert, well appearing, and in no distress. Ears: bilateral TM's and external ear canals normal Nose: normal and patent, no erythema, discharge or polyps Oropharynx: mucous membranes moist, pharynx normal without lesions Neck: supple, no significant adenopathy Lungs: clear to auscultation, no wheezes, rales or rhonchi, symmetric air entry Heart - regular rate and rhythm, normal S1 and S2, no murmurs ASSESSMENT: viral upper respiratory illness Intermittent asthma well controlled PLAN: See orders for this visit as documented in the electronic medical record Symptomatic therapy suggested: push fluids, rest and return office visit prn if symptoms persist orworsen. Continue to use inhaler as needed for wheezing ATOLOGICAL SURGEON documented in this encounter Plan of Treatment Not on file documented as of this encounter Visit Diagnoses Diagnosis URI (upper respiratory infection)- Primary Acute upper respiratory infections of unspecified site documented in this encounter
--- OUTSIDE RECORDS SUMMARY | 2024-11-22 00:16 | XMS_ITS | Encounter Summary ---
Author Organization [facility] Address [address] [place] [address] Care Team Providers Care Head Silverman Name Role Phone Unavailable Primary Care Provider Unavailabl e Reason for Visit * Reason Comments Pain Abdominal Congestion Encounter Details Date Type Department Care Team (Late st Contact Info) Description 01/06/2010 9:10 AM HOTEL OR MOTEL ROOM SERVICE SUPERVISOR Office Visit [facility] Medical [facility] - Pediatrics [address] [place] [address] [address] [place] [phone] Sangeeta Robertson MD [address] [place] [address] Abdominal Pain, Generalized (Primary Dx) Social History Tobacco Use Types Packs/Day Years Used Date Smoking Tobacco: Never Assessed Sex and Gender Information Value Date Recorded Sex Assigned at Not on file Gender Identity Not on file Sexual Orientation Not on file documented as of this encounter Last Filed Vital Signs Vital Sign Reading Time Taken Comments Blood Pressure - - Pulse - - Temperature 37 ??C (98.6 ??F) 01/06/2010 9:05 AM HOTEL OR MOTEL ROOM SERVICE SUPERVISOR Respiratory Rate - - Oxygen Saturation - - Inhaled Oxygen Concentration - - Weight 18.4 kg (40 lb 9.6 oz) 01/06/2010 9:05 AM HOTEL OR MOTEL ROOM SERVICE SUPERVISOR Height 114.9 cm (3' 9.25 ) 01/06/2010 9:05 AM CS T Body Mass Index 13.94 01/06/2010 9:05 AM HOTEL OR MOTEL ROOM SERVICE SUPERVISOR Body Mass Index Percentile 8.18% 01/06/2010 9:0 5 AM HOTEL OR MOTEL ROOM SERVICE SUPERVISOR Growth Chart: [facility] (Boys, 2-2 0 Years) documented in this encounter Progress Notes * Sangeeta Robertson MD - 01/06/2010 9:12 AM CST SUBJECTIVE: Santiago Torres is a 4 y.o.brought by mother for evaluation of abdominal pain. Pain started 2 weeks ago in in the lower midline area. Pain is described as described as achy intermittent, no specificprecipitating factors. Fever: yes, 6 days ago felt warm Vomiting: Yes, all night for one night, none since then Diarrhea: No Constipation: No Dysuria: No Back Pain: No Weight loss:No Waking up from Sleep: No Associated with meals: No Medications: NO He has also been congested with a little cough. OBJECTIVE: Temp (Src) 98.6 ??F (Oral) Wt 18.416 kg (40 lb 9.6 oz) General appearance: alert, well appearing, and in no distress. Ears: bilateral TM's and external ear canals normal Nose: normal and patent, no erythema, discharge or polyps Oropharynx: mucous membranes moist, pharynx normal without lesions Neck: supple, no significant adenopathy Lungs: clear to auscultation, no wheezes, rales or rhonchi, symmetric air entry Heart - regular rate and rhythm, normal S1 and S2, no murmurs Abdomen:NT, ND, normal BS's, no HSM Skin:Skin color, texture, turgor normal. No rashes or lesions ASSESSMENT: Abdominal Pain( most likely functional) PLAN: UA in the office was normal Reassured mom and explained the nature of functional abdominal pain L OR MOTEL ROOM SERVICE SUPERVISOR documented in this encounter Plan of Treatment Not on file documented as of this encounter Procedures Procedure Name Priority Date/Time Associated Diagnosis Comments URINALYSIS - POINT OF CARE Routine 01/06/2010 9:27 AM HOTEL OR MOTEL ROOM SERVICE SUPERVISOR Abdominal Pain, Generalized documented in this encounter Results * URINALYSIS - POINT OF CARE (01/06/2010 9:27 AM HOTEL OR MOTEL ROOM SERVICE SUPERVISOR) Clarity UA POCT Color UA POCT Leukocyte UA Negative Nitrite UA POCT Negative Urobilinogen UA POCT 0.1 - 1.0 EU/dL Protein UA POCT trace Negative pH UA 5 5.0 - 8.0 pH units Blood UA Negtive Specific [place] UA POCT 1.025 1.002 - 1.030 Ketone UA Negative Bilirubin UA POCT Negative Glucose UA Negative Urine specimen (specimen) URINE / Unknown Sangeeta Robertson MD LAB - POINT OF CARE ORDERABLES documented in this encounter Visit Diagnoses Diagnosis Abdominal pain, generalized- Primary documented in this encounter
--- OUTSIDE RECORDS SUMMARY | 2024-11-22 00:16 | XMS_ITS | Encounter Summary ---
Author Organization [facility] Address [address] [facility] [place] [address] Care Team Providers Care Podiatric Medicine Doctor Name Role Phone Unavailable Primary Care Provider Unavailabl e Encounter Details Date Type Department Care Team (Late st Contact Info) Description 07/04/2009 Orders Only [facility] - Pediatrics [address] [place] [address] [address] [place] [phone] Sangeeta Robertson MD [address] [place] [address] Social History Tobacco Use Types Packs/Day Years Used Date Smoking Tobacco: Never Assessed Sex and Gender Information Value Date Recorded Sex Assigned at Not on file Gender Identity Not on file Sexual Orientation Not on file documented as of this encounter Plan of Treatment Not on file documented as of this encounter Procedures Procedure Name Priority Date/Time Associated Diagnosis Comments LEAD BLOOD 07/04/2009 3:29 PM CDT documented in this encounter Results * LEAD BLOOD (07/04/2009 3:29 PM CDT) [...] Sample [facility] Comment: Test Performed at: [facility] [address] [place], [place] ??[phone] MELANIE AGOSTO MD 07/04/2009 3:29 PM CDT 07/04/2009 3:31 PM CDT Sangeeta Robertson MD LAB - CHEMISTRY [facility] [address] [place] [address] documented in this encounter Visit Diagnoses Not on filedocumented in this encounter
--- OUTSIDE RECORDS SUMMARY | 2024-11-22 00:16 | XMS_ITS | Encounter Summary ---
Author Organization [facility] Address [address] [place] [address] Care Team Providers Care Account Receivable Associate Name Role Phone Unavailable Primary Care Provider Unavailabl e Reason for Visit * Reason Comments Asthma follow-up Encounter Details Date Type Department Care Team (Late st Contact Info) Description 03/16/2010 10:15 AM CDT Office Visit [facility] - Pediatrics [address] [place] [id number] Barb Gamboa MD [address] [place] [phone] Unspecified Asthma, with Exacerbation (HCC) (Primary Dx); Allergic Rhinitis Social History Tobacco Use Types Packs/Day Years Used Date Smoking Tobacco: Never Assessed Sex and Gender Information Value Date Recorded Sex Assigned at Not on file Gender Identity Not on file Sexual Orientation Not on file documented as of this encounter Last Filed Vital Signs Vital Sign Reading Time Taken Comments Blood Pressure - - Pulse 104 03/16/2010 10:21 AM CDT Temperature 35.8 ??C (96.4 ??F) 03/16/2010 10:21 AM C DT Respiratory Rate - - Oxygen Saturation 96% 03/16/2010 10:21 AM CDT Inhaled Oxygen Concentration - - Weight - - Height 115.6 cm (3' 9.5 ) 03/16/2010 10:21 AM CD T Body Mass Index - - documented in this encounter Progress Notes * Barb Gamboa MD - 03/16/2010 12:57 PM CDT HPI: Santiago Torres, 4 y.o., male, here for complaint of continued coughing Symptoms started 10-11 days ago and he was seen 5 days ago, given an inhaler because he was out at that time. STill not improving, still wheezing at night. Fever: No, Tmax Runny Nose: Yes, clear Congestion: No Cough: Yes, all the time Difficulty breathing: Yes-mom has noticed him breathing harder. Sleep: fair Appetite: good Fluids: good Activity: decreased. Doesn't want to go outside because coughing gets worse Medications: albuteral, zyrtec. Phx: per mom, dx'd with asthma at 6 m/o PE: Pulse 104 Temp (Src) 96.4 ??F (Oral), Last 1 Encounter Sp02 Readings: Office Visit on 03/16/10 03/16/2010 10:21 AM SpO2: 96% Alert, no distress. HEENT: Ears: Left: Normal Right: Normal Nose: normal Throat: normal Neck: supple Chest: no increased work of breathing Heart: Normal PMI. regular rate and rhythm, normal S1, S2, no murmurs or gallops. Lungs: Clear to auscultation, unlabored breathing Pk flow in green zone Impression: 1. Asthma exacerbation 2. Allergic rhinits Plan: Albuterol HFA (2 puffs) every 4 hours . May wean as symptoms improve. Rx: orapred 2mg/kg for 5 days Rx: singulair 5mg daily for 1 week * Abbi Logan, ANDRESSA - 03/16/2010 10:24 AM CDT Pt is accompanied to office today by Mom. States that pt is no better and seems worse to her. Coughis loose, productive and constant during day and night. No wheezing noticed. Still is sneezing, sniffling, and breathes harder at times. Afeb. Last dose of Albuterol inhaler at 0800 this am. documented in this encounter Plan of Treatment Not on file documented as of this encounter Visit Diagnoses Diagnosis Unspecified asthma, with exacerbation (HCC)- Primary Unspecified asthma, with exacerbation Allergic rhinitis Allergic rhinitis, cause unspecified documented in this encounter
--- OUTSIDE RECORDS SUMMARY | 2024-11-22 00:16 | XMS_ITS | Encounter Summary ---
Author Organization [facility] Address [address] [place] [address] Care Team Providers Care Purchasing Agent Name Role Phone Lauro Oquendo MD Primary Care Provider [phone] Reason for Visit * Reason Comments Asthma Allergy Symptoms Spring and Fall symp toms, eye swelling, asthma triggers Encounter Details Date Type Department Care Team (Latest Contact Info) Description 06/03/2013 8:30 AM CDT - 06/03/2013 11:59 PM CDT Hospital Encounter [facility] - Allergy [address] [place] [address] Mariusz Castaneda MD UPDATE ADDRESS Discharge Disposition: Home or Self Care Social History Tobacco Use Types Packs/Day Years Used Date Smoking Tobacco: Never Assessed Sex and Gender Information Value Date Recorded Sex Assigned at Not on file Gender Identity Not on file Sexual Orientation Not on file documented as of this encounter Last Filed Vital Signs Vital Sign Reading Time Taken Comments Blood Pressure 94/54 06/03/2013 8:49 AM CDT Pulse - - Temperature - - Respiratory Rate - - Oxygen Saturation - - Inhaled Oxygen Concentration - - Weight 26 kg (57 lb 5.1 oz) 06/03/2013 8:49 AM C DT Height 130.4 cm (4' 3.34 ) 06/03/2013 8:49 AM CD T Body Mass Index 15.29 06/03/2013 8:49 AM CDT Body Mass Index Percentile 25.63% 06/03/2013 8:4 9 AM CDT Growth Chart: [facility] (Boys, 2-2 0 Years) documented in this encounter Discharge Instructions * Patient Instructions* Yessi Bravo, ANDRESSA - 06/03/2013 10:09 AM CDT Asthma Action Plan: Flovent 44 (2 times a day) w/spacer; Singulair 5mg At bedtime. Albuterol 2 puffs every 4 hours prn: cough/wheeze/Shortness of breathe, and 2 puffs 20-30 minutes prior to exertion. The Discharge Instructions have been reviewed with the patient and his family. The parents have verbalized understanding. documented in this encounter Medications at Time [...] Use as directed. 1 0 03/10/2010 04/24/2017 cetirizine (ZYRTEC) 5 MG chew tablet Take 5 mg by mouth daily. 07/21/2013 fluticasone propionate (FLUTICASONE PROPIONATE) 50 MCG/ACT nasal spray [place] 2 Sprays into each nostril once daily. 1 Bottle 5 06/03/2013 04/24/2017 montelukast (SINGULAIR) 5 MG chew tablet Take 1 Tab by mouth every evening. 30 Tab 5 06/03/2013 04/24/2017 montelukast (SINGULAIR) 5 MG chew tablet Take 1 Tab by mouth every evening. 30 2 03/16/2010 04/24/2017 documented as of this encounter Progress Notes * Beena Box MD - 06/03/2013 8:50 AM CDT Physician: CC: DENIS and AC HPI: Santiago Torres is a 7 y.o. male who presents for evaluation of AR , congested and runny noseto clear secretions, postnasal drip, worse during spring and fall, itchy eyes and swelling in his eyes which is more during spring. Pt started on pataday which helps but at the end of the day his eyes start to each again. Pt used Flonase which helped his symptoms but does not use it every day. And zyrtec once daily but last time was 1 month ago. Has dog at home, Pt coughs during spring and fall, Pt has SOB during exercise, does not wake up at night, last year was in ER because the asthma attak. Pt has Hx of asthma since he was few months old. Pt was on pulmicort neb and last time was 1 year ago. Pt needs albuterol once daily during spring and fall and singular 5 mg po once daily. Pt was on Flovent 44 mcg 2 puffs BID which helped his asthma symptoms. No food allergy No Eczema Infections No/life No/life Pneumonia 0 Bronchiolitis 0 Bronchitis 1 Croup 0 Sinusitis 2-3 a year Influenza 0 OM 0 Varicella 0 Pharyngitis 0 Zoster 0 Cellulitis 0 Thrush 0 Abscess 0 Skin fungal 0 Other 0 Nail fungal 0 Antibiotic usage 2-3 PMHx: Patient Active Problem List Diagnosis Date Noted ??? Allergic Conjunctivitis 03/10/2012 ??? Allergic rhinitis 03/10/2012 ??? Asthma, moderate persistent 03/16/2011 Current Outpatient Prescriptions Medication Sig Dispense Refill ??? albuterol HFA (VENTOLIN HFA) 8 gram inhaler Inhale 2 Puffs by mouth every 4 hours as needed forWheezing and Cough. 1 Inhaler 1 ??? olopatadine (PATADAY) 0.2 % ophthalmic solution Instill 1 Drop into both eyes daily. 1 Bottle 3 ??? trimethoprim-polymyxin B (POLYTRIM) 08528-4.1 UNIT/ML-% ophthalmic solution 2 Drops every 4 hours. 1 Bottle 0 ??? cetirizine (ZYRTEC) 5 MG chew tablet Take 5 mg by mouth daily. ??? montelukast (SINGULAIR) 5 MG chew tablet Take 1 Tab by mouth every evening. 30 2 ??? AeroChamber Plus (AEROCHAMBER) Use as directed. 1 0 ??? amoxicillin (AMOXIL) 400 MG/5ML SUSR suspension Take 9.5 mL by mouth 2 times daily. 10 day supply 0 Medication Allergies: No Known Allergies PSHx: No surgery Hx: no complications. Immunization status: up to date and documented. Environmental Hx: Lives in a house, carpet, smoking out side, no water leak, has dog at home. FHx: Asthma Cousin and mother's side AR AD Urticaria Food Allergy SLE RA Thyroid Leukemia Lymphoma IDS Other Review of Systems: Constitutional: No weight loss, fever ENT: +++ Rhinitis, +++nasal congestion, +++sneezing,++ ocular/nasal pruritus CV: No CP, SOB, palpitations Resp: ++ wheeze, +++cough, +++SOB GI: No abdominal pain, V/D, constipation : no retention, incontinence, dysuria, hematuria MS: no joint/bone pain, swelling, redness Neuro: no weakness, numbness, confusion, syncope Skin: No hives, swelling, pruritus, bruising, eczema Psych: no behavioral changes Endocrine: No thyroid, polyuria, polydipsia, flushing Heme/Lymph: No bruising/bleeding, hx of abnormal blood counts PE: There were no vitals filed for this visit. Gen: NAD, WNWD Eyes: PERRL, EOMI, conjunctiva clear B . ENT: TM-clear B, congested nose Neck: Supple, FROM. CV: RRR s m Resp: CTAB, no wheezes ABD: soft, NTND, no HSM Extr: no c/c/e Skin: no lesions/rashes Lymphatic: Palpation of nodes in neck/axillae show no LAD Data Review: Pulmonary Function Studies Pre Albuterol FVC 89 FEV1 83 FEV1/FVC 83 LDL35-59 65 Skin test: positive to trees, grass, DM A/P: 1-Asthma: not well controlled -environmental control -asthma action plan -start Flovent 44 mcg 2 puffs BID -continue singular 5 mg po once daily -albuterol prn 2-AR: -start Flonase 2 sprays once daily -continue singular 5 mg po once daily -continue zyrtec 10 mg po once daily 3-AC: -start zaditor 1 eye gtt BID RTC - 6 months I spent 60 minutes discussing results and counseling with patient and family. Mariusz Castaneda MD 06/03/2013 8:50 AM ALLERGY & IMMUNOLOGY ATTENDING NOTE Patient seen and examined with resident. I have reviewed the Allergy & Immunology fellow's history, physical examination, assessment and treatment plan and evaluation. I confirm/revise history, examination, assessment and plan. In addition I note: 7 yo male with perennial rhinoconjunctivitis, worsening Spring & Fall. Symptoms x many years, never been controlled. Takes Zyrtec 10mg qday prn, rather than daily. Also used Flonase on prn basis,rather than daily - now rarely using. Tried Pataday eye gtt once daily prn - mom reports this helped but by end of day developed red, itchy eyes again. Rhinosinusitis about 2 times per year. Denies other infection history. Never had allergy testing in the past. Asthma symptoms since infancy; started on Pulmicort nebs BID at age 6 months per mom. Eventually switched to Flovent 44 (2x2), but was using just prn, rather than daily. Never used with a spacer. Never had problems with thrush. Also on Singulair 5mg qhs, but ran out couple months ago. Has about 1-2exacerbations per year, treated in urgent care or EDs; denies h/o admissions for asthma. Has about 1-2 CS bursts per year - last given in Fall 2011. Now with frequent exertional cough/wheeze - requires albuterol daily, mainly for exertional symptoms. Does not pre-treat with albuterol prior to exertion. Denies nocturnal cough w/awakenings. Denies h/o atopic dermatitis or food allergies. PE: Gen: NAD, WNWD Eyes: PERRL, EOMI, conjunctiva clear B . ENT: TM-clear B, nares - patent with pale, boggy turbinates and clear ucus; OP - cobblestoned with clear postnasal drainage, small tonsils 1+. Neck: Supple, FROM. CV: RRR s m Resp: CTAB, no wheezes ABD: soft, NTND, no HSM Extr: no c/c/e Skin: no lesions/rashes Lymphatic: Palpation of nodes in neck show no LAD A/P: 7 yo male with allergic rhinoconjunctivitis and asthma. 1) ARC: (T/G/HDM). Reviewed environmental controls & reading info given today. Begin Zyrtec 10mg qday, Flonase (2 sprays/nare) qday - reviewed proper technique, and switch from Pataday to Ketotifen (1 gtt/eye) BID prn. Continue Singulair 5mg qhs - refilled today. 2) Asthma: Not well-controlled. Spirometry today normal, but FEF 25-75 decreased, indicating likelysmall airway disease. Continue Singulair 5mg qhs, as above. Begin Flovent 44 (2x2) w/spacer. Albuterol prn & prior to exertion. Updated asthma action plan given today. RTC: 4-6 months; call sooner if needed. documented in this encounter Miscellaneous Notes * Miscellaneous Scans - Document, Scanned - 06/08/2013 7:21 AM CDT * Miscellaneous Scans - Document, Scanned - 06/08/2013 7:19 AM CDT documented in this encounter Plan of Treatment Not on file documented as of this encounter Procedures Procedure Name Priority Date/Time Associated Diagnosis Comments BEDSIDE SPIROMETRY Routine 06/03/2013 9:10 AM CDT documented in this encounter Visit Diagnoses Diagnosis Allergic rhinitis Allergic rhinitis, cause unspecified Allergic Conjunctivitis Other chronic allergic conjunctivitis Asthma Unspecified asthma documented in this encounter Care Teams Purchasing Agent Relationship Specialty Start Date End Date Lauro Oquendo MD [address] [place] [phone] PCP - General Pediatrics 06/03/13 documented as of this encounter
--- OUTSIDE RECORDS SUMMARY | 2024-11-22 00:16 | XMS_ITS | Encounter Summary ---
Author Organization [facility] Address [address] [place] [address] Care Team Providers Care Photograph Mounter Name Role Phone Lauro Oquendo MD Primary Care Provider [phone] Reason for Visit * Reason Comments Headache started yeater c/o difficulty breathing and pt reported to school nurse, taken to Ed, recieved treatment and steroids for wheezing, feeling better today until 1900 pt tearful c/o C[place] and had emesis and nausea, photophobia, no fever Encounter Details Date Type Department Care Team (Late st Contact Info) Description 07/21/2013 8:14 PM CDT - 07/21/2013 11:32 PM CDT Emergency ER at [address] [address] Germán Russ MD [address] [place] [phone] Sinus infection Discharge Disposition: Home or Self Care Social [...] 1.6 oz) 07/21/2013 8:51 PM CDT Height - - Body Mass Index - - documented in this encounter Discharge Instructions * Discharge Instructions* Estee Pierce MD - 07/21/2013 11:15 PM CDT Sinus Infection- please complete 10day course of Antibiotics. Please see your fishing floats assembler after antibiotics are complete. Headache Headaches are caused by many different problems. Most commonly, headache is caused by muscle tension from an injury, fatigue, or emotional upset. Excessive muscle contractions in the scalp and neck result in a headache that often feels like a tight band around the head. Tension headaches often haveareas of tenderness over the scalp and the back of the neck. These headaches may last for hours, days, or longer, and some may contribute to migraines in those who have migraine problems. Migraines usually cause a throbbing headache, which is made worse by activity. Sometimes only one side of the head hurts. Nausea, vomiting, eye pain, and avoidance of food are common with migraines. Visual symptoms such as light sensitivity, blind spots, or flashing lights may also occur. Loud noises may worsen migraine headaches. Many factors may cause migraine headaches: ?? Emotional stress, lack of sleep, and menstrual periods. ?? Alcohol and some drugs (such as control pills). ?? Diet factors (fasting, caffeine, food preservatives, chocolate). ?? Environmental factors (weather changes, bright lights, odors, smoke). Other causes of headaches include minor injuries to the head. Arthritis in the neck; problems with the jaw, eyes, ears, or nose are also causes of headaches. Allergies, drugs, alcohol, and exposure to smoke can also cause moderate headaches. Rebound headaches can occur if someone uses pain medications for a long period of time and then stops. Less commonly, blood vessel problems in the neck and brain (including stroke) can cause various types of headache. Treatment of headaches includes medicines for pain and relaxation. Ice packs or heat applied to theback of the head and neck help some people. Massaging the shoulders, neck and scalp are often very useful. Relaxation techniques and stretching can help prevent these headaches. Avoid alcohol and cigarette smoking as these tend to make headaches worse. Please see your caregiver if your headache is not better in 2 days. SEEK IMMEDIATE MEDICAL CARE IF: ?? You develop a high fever, chills, or repeated vomiting. ?? You faint or have difficulty with vision. ?? You develop unusual numbness or weakness of your arms or legs. ?? Relief of pain is inadequate with medication, or you develop severe pain. ?? You develop confusion, or neck stiffness. ?? You have a worsening of a headache or do not obtain relief. Document Released: 11/11/2006 Document Revised: 07/23/2012 Document Reviewed: 05/06/2008 ExitCare?? Patient Information ??2012 [facility].Headache Headaches are caused by many different problems. Most commonly, headache is caused by muscle tension from an injury, fatigue, or emotional upset. Excessive muscle contractions in the scalp and neck result in a headache that often feels like a tight band around the head. Tension headaches often haveareas of tenderness over the scalp and the back of the neck. These headaches may last for hours, days, or longer, and some may contribute to migraines in those who have migraine problems. Migraines usually cause a throbbing headache, which is made worse by activity. Sometimes only one side of the head hurts. Nausea, vomiting, eye pain, and avoidance of food are common with migraines. Visual symptoms such as light sensitivity, blind spots, or flashing lights may also occur. Loud noises may worsen migraine headaches. Many factors may cause migraine headaches: ?? Emotional stress, lack of sleep, and menstrual periods. ?? Alcohol and some drugs (such as control pills). ?? Diet factors (fasting, caffeine, food preservatives, chocolate). ?? Environmental factors (weather changes, bright lights, odors, smoke). Other causes of headaches include minor injuries to the head. Arthritis in the neck; problems with the jaw, eyes, ears, or nose are also causes of headaches. Allergies, drugs, alcohol, and exposure to smoke can also cause moderate headaches. Rebound headaches can occur if someone uses pain medications for a long period of time and then stops. Less commonly, blood vessel problems in the neck and brain (including stroke) can cause various types of headache. Treatment of headaches includes medicines for pain and relaxation. Ice packs or heat applied to theback of the head and neck help some people. Massaging the shoulders, neck and scalp are often very useful. Relaxation techniques and stretching can help prevent these headaches. Avoid alcohol and cigarette smoking as these tend to make headaches worse. Please see your caregiver if your headache is not better in 2 days. SEEK IMMEDIATE MEDICAL CARE IF: ?? You develop a high fever, chills, or repeated vomiting. ?? You faint or have difficulty with vision. ?? You develop unusual numbness or weakness of your arms or legs. ?? Relief of pain is inadequate with medication, or you develop severe pain. ?? You develop confusion, or neck stiffness. ?? You have a worsening of a headache or do not obtain relief. Document Released: 11/11/2006 Document Revised: 07/23/2012 Document Reviewed: 05/06/2008 ExitCare?? Patient Information ??2011 [employer]. * Discharge Instructions* Document, Scanned - 07/22/2013 6:41 PM CDT documented in this encounter Medications at Time of Discharge Medication Sig Dispensed Refills Start Date End Date albuterol HFA (PROVENTIL;VENTOLIN;ID OAIR) 108 (90 BASE) MCG/ACT inhaler Inhale 2 [...] Use as directed. 1 0 03/10/2010 04/24/2017 cefDINIR (OMNICEF) 300 MG capsule Take 1 Cap by mouth 2 times daily for 10 days. 10 Cap 0 07/21/2013 07/31/2013 fluticasone propionate (FLUTICASONE PROPIONATE) 50 MCG/ACT nasal spray [place] [facility] 2 Sprays into each nostril once daily. 1 Bottle 5 06/03/2013 04/24/2017 montelukast (SINGULAIR) 5 MG chew tablet Take 1 Tab by mouth every evening. 30 Tab 5 06/03/2013 04/24/2017 montelukast (SINGULAIR) 5 MG chew tablet Take 1 Tab by mouth every evening. 30 2 03/16/2010 04/24/2017 predniSONE (DELTASONE) 20 MG tablet Take 20 mg by mouth once daily. Tapering doses P.O.Intake for the past 48 hrs:No Data Recorded Admission weight: Weight: 25.9 kg (57 lb 1.6 oz) (07/21/132050) @WTMULTIPLE@ WT Comments: Laboratory values reviewed: Medications noted. Skin: {NURSING ASSESSMENT:33021} Estimated Energy Needs: Recommendations: Monitoring: Evaluation: Diagnostic Statement #1 Goals: 03/29/2017 documented as of this encounter ED Notes * Rosey Wesley RN - 07/21/2013 11:32 PM CDT Pt alert, in nad at time of dc. Denies pain. Reviewed dc instructions with mom and dad who verbalize understanding and deny further questions. * Estee Pierce MD - 07/21/2013 9:13 PM CDT Images from the original note were not included. EMERGENCY DEPARTMENT 07/21/2013 Dear Doctor, We had the pleasure of caring for your patient, Santiago Torres in our emergency department on 07/21/2013. A note from the provider(s) who cared for your patient is attached. Should you wish to access any laboratory results, please call . Should you wish to access any radiology results, please call , option 3. In addition, you can access patient information 24 hours a day, from any computer, through [employer], the online version of our electronic medical record. If you would like to use this service, please call Beverly Pruett, Connectivity Coordinator, at . We appreciate the opportunity to care for your patients. If you would like additional information, please call the emergency department directly at . Sincerely, Estee Pierce MD Division of Emergency Medicine [facility], MD [facility] [place] DESIGNATED EMERGENCY DEPARTMENT Provider contact with the patient: 07/21/2013 21:13 Santiago Torres [id number] [facility] EMERGENCY DEPARTMENT History Chief Complaint Patient presents with ??? Headache started yeaterday with c/o difficulty breathing and pt reported to school nurse, taken to Ed, recieved treatment and steroids for wheezing, feeling better today until 1900 pt tearful c/o [place] and had emesis and nausea, photophobia, no fever HPI 7 yo male presents with acute onset of severe frontal headache tonight. CUNN[place] started ~1900 and then progressed to the point where patient vomited and began crying ~1930. C/o photophobia. Parents endorse that patient has had [place] in the past, however nothing this severe. He has asthma, did have a flare yesterday where he received 6 puffs of Albuterol then sent to OSH. At OSH ED received a Neb and was sent home on steroid course. No wheezing, cough, or shortness of breath since. Afebrile. No other URI sx, no more emesis. Deneis N/V/D now. No aura or metamorphopsia. +FHx of migraine in mother and older brother, both onset ~9-10 years of age. Mother is on multiple medications for her migraine and brother is on Propanolol for daily prophy. Past Medical History Diagnosis Date ??? Routine or child health check 10/05/2008 ??? Viral warts, unspecified 12/11/2007 ??? Acute upper respiratory infections of unspecified site 02/24/2009 ??? Vomiting alone 02/24/2009 ??? Acute suppurative otitis media without spontaneous rupture of eardrum 11/21/2004 ??? Acute suppurative otitis media without spontaneous rupture of eardrum 02/19/2005 ??? Acute suppurative otitis media without spontaneous rupture of eardrum 08/28/2005 ??? Acute suppurative otitis media without spontaneous rupture of eardrum 09/18/2005 ??? Acute suppurative otitis media without spontaneous rupture of eardrum 10/15/2005 ??? Acute upper respiratory infections of unspecified site 03/07/2005 ??? Acute upper respiratory infections of unspecified site 06/13/2005 ??? Acute upper respiratory infections of unspecified site 12/03/2006 ??? Acute upper respiratory infections of unspecified site 03/04/2007 ??? RAD (reactive airway disease) 03/07/2005 ??? RAD (reactive airway disease) 04/15/2006 ??? Routine infant or child health check 08/14/2005 ??? Routine or child health check 02/07/2007 ??? Conjunctivitis unspecified 11/22/2005 ??? Conjunctivitis unspecified 04/15/2006 No past surgical history on file. History Social History ??? Marital Status: Single Spouse Name: N/A Number of Children: N/A ??? Years of Education: N/A Occupational History ??? Not on file. Social History Main Topics ??? Smoking status: Not on file ??? Smokeless tobacco: Not on file ??? Alcohol Use: Not on file ??? Drug Use: Not on file ??? Sexually Active: Not on file Other Topics Concern ??? Not on file Social History Narrative ??? No narrative on file Medications Please see med rec Review of Systems Review of Systems Constitutional: Negative for fever, activity change and appetite change. HENT: Negative for congestion, sore throat, facial swelling, rhinorrhea, neck pain and postnasal drip. Eyes: Positive for photophobia. Negative for visual disturbance. Respiratory: Negative for cough, shortness of breath, wheezing and stridor. Cardiovascular: Negative for chest pain and palpitations. Gastrointestinal: Positive for vomiting. Negative for nausea, abdominal pain, diarrhea and constipation. Genitourinary: Negative. Skin: Negative for rash and wound. Neurological: Positive for headaches. Negative for tremors, seizures, weakness and numbness. Hematological: Negative. Psychiatric/Behavioral: Negative. BP 111/49 Pulse 80 Temp 97.8 ??F Resp 20 Wt 25.9 kg (57 lb 1.6 oz) SpO2 100% Physical Exam Physical Exam Constitutional: He appears well-developed and well-nourished. Uncomfortable- lying in dark with eyes covered, speaking softly HENT: Right Ear: Tympanic membrane normal. Left Ear: Tympanic membrane normal. Nose: No nasal discharge. Mouth/Throat: Mucous membranes are moist. Oropharynx is clear. Maxillary sinus tenderness L>R Eyes: Conjunctivae normal and EOM are normal. Pupils are equal, round, and reactive to light. Neck: Normal range of motion. Neck supple. No rigidity or adenopathy. Cardiovascular: Normal rate, regular rhythm, S1 normal and S2 normal. Pulses are strong. No murmur heard. Pulmonary/Chest: Effort normal. There is normal air entry. No respiratory distress. He has no wheezes. He has no rhonchi. He has no rales. Abdominal: Soft. Bowel sounds are normal. He exhibits no distension and no mass. There is no hepatosplenomegaly. There is no tenderness. Neurological: He is alert. He displays normal reflexes. No cranial nerve deficit. He exhibits normal muscle tone. Coordination normal. Skin: Skin is warm and dry. Capillary refill takes less than 3 seconds. Procedures Procedures Lab/SPO2 Interpretation Progress Notes ED Course 9:23 PM Given new onset of severe [place] and vomiting will obtain CT head non- contrast. Will then placeIV, give 500ml NS bolus, toradol and benadryl. 10:49 PM Air fluid level in L maxillary sinus, no acute intracranial process. Likely migraine, however will treat with Abx. 11:08 PM CUNN[place] resolved, patient happy and awake. Will D/C Medical Decision Making 1. Headache - likely Migraine. Anticipatory guidance give for supportive care 2. Sinus infection- 10 days of Omnicef. Clinical Impression Final diagnoses: Sinus infection * Germán Russ MD - 07/21/2013 9:12 PM CDT Provider contact with the patient: 07/21/2013 21:12 Santiago Torres [id number] [facility] EMERGENCY DEPARTMENT History Chief Complaint Patient presents with ??? Headache started yeaterday with c/o difficulty breathing and pt reported to school nurse, taken to Ed, recieved treatment and steroids for wheezing, feeling better today until 1900 pt tearful c/o [place] and had emesis and nausea, photophobia, no fever I have read the resident/MANAGER MARKETING SALES history. Unless appended by me below, I agree with findings as documented. HPI 7 yr old with headache for 2 hours. Having photophobia, no blurry vision, no other factors Pain score 8/10. Family Hx + Migraine mom and older brother. Review of Systems Review of Systems Gastrointestinal: Positive for nausea. Neurological: Positive for headaches. All other systems reviewed and are negative. BP 111/49 Pulse 80 Temp 97.8 ??F Resp 20 Wt 25.9 kg (57 lb 1.6 oz) SpO2 100% Physical Exam I have reviewed the resident/MANAGER MARKETING SALES physical exam. Unless appended by me below, I agree with the PE as documented. Physical Exam HENT: Mouth/Throat: Oropharynx is clear. Eyes: Pupils are equal, round, and reactive to light. Neck: Normal range of motion. Cardiovascular: Regular rhythm. Pulmonary/Chest: Effort normal. Abdominal: Soft. Musculoskeletal: Normal range of motion. Neurological: He is alert. He has normal reflexes. Procedures Procedures Progress Notes ED Course CT to R/O any intracranial event. Migraine protocol CT shows left maxillary sinus filled with fluid suggestive of Left Maxillary Sinusitis. Will d/c on antibiotics and pain meds Medical Decision Making I have reviewed the: Nursing Notes and Vitals. I have interpreted the following results: CT Scans. The total time providing critical care (excluding time spent for procedures) was: < 30 minutes. I have personally seen and examined this patient. I have fully participated in the care of this patient. I have reviewed all pertinent clinical information available to me during this encounter, including history, physical exam and plan. I have reviewed nursing notes, available labs and radiographic studies. Ass: Migraine, Sinusitis, R/O intracranial event Clinical Impression Final diagnoses: None Migraine, Sinusitis, Analgesia documented in this encounter Miscellaneous Notes * Miscellaneous Scans - Document, Scanned - 07/22/2013 6:41 PM CDT documented in this encounter Plan of Treatment Not on file documented as of this encounter Procedures Procedure Name Priority Date/Time Associated Diagnosis Comments CT HEAD WO CONTRAST STAT 07/21/2013 1 0:33 PM CDT Headache documented in this encounter Results * CT HEAD NON CONTRAST (07/21/2013 10:33 [...] at 2244. Estee Pierce MD CT ORDERABLES documented in this encounter Visit Diagnoses Diagnosis Headache(784.0)- Primary Headache Sinus infection Unspecified sinusitis (chronic) Unspecified sinusitis (chronic) documented in this encounter Administered Medications Inactive Administered Medications - up to 3 most recent administrations Medication Order MAR Action Action Date Dose Rate Site 0.9 % nacl IV BOLUS 500 mL 500 mL (19.3 mL/kg), at 500 mL/hr, Administer over 60 Minutes, Intravenous, ONCE, 1 dose, On Sat07/21/13 at 2145 $ Given 07/21/2013 10:08 PM CDT 500 mL 5 00 mL/hr diphenhydrAMINE (BENADRYL) injection 25 mg 25 mg (0.965 mg/kg), Intravenous, ONCE, 1 dose, On Sat07/21/13 at 2145, Max intravenous rate = 25 mg/min $ Given 07/21/2013 10:08 PM CDT 25 mg ketorolac (TORADOL) injection 13 mg 13 mg (0.502 mg/kg), Intravenous, ONCE, 1 dose, On Sat07/21/13 at 2145, . WASTE DISPOSAL INSTRUCTIONS: Black Bin Disposal required. $ Given 07/21/2013 10:08 PM CDT 13 mg documented in this encounter Active and Recently Administered Medications Times are shown in CDT. Scheduled Medication Order 07/19/2013 07/20/2013 07/21/2013 0.9 % nacl IV BOLUS 500 mL (COMPLETED) 500 mL (19.3 mL/kg), at 500 mL/hr, Administer over 60 Minutes, Intravenous, ONCE, 1 dose, On Sat07/21/13 at 2145 2208 ($ Given - Prov ider: Deanna J Van Ausdale, RN)2308 (Due: Rx Stopped - Provider: Deanna Hopkins RN) diphenhydrAMINE (BENADRYL) injection 25 mg (COMPLETED) 25 mg (0.965 mg/kg), Intravenous, ONCE, 1 dose, On Sat07/21/13 at 2145, Max intravenous rate = 25 mg/min 2208 ($ Given - Prov ider: Deanna Hopkins RN) ketorolac (TORADOL) injection 13 mg (COMPLETED) 13 mg (0.502 mg/kg), Intravenous, ONCE, 1 dose, On Sat07/21/13 at 2145, . WASTE DISPOSAL INSTRUCTIONS: Black Bin Disposal required. 2208 ($ Given - Prov ider: Deanna Hopkins RN) documented in this encounter Care Teams Photograph Mounter Relationship Specialty Start Date End Date Lauro Oquendo MD [address] [place] [phone] PCP - General Pediatrics 06/03/13 documented as of this encounter
--- OUTSIDE RECORDS SUMMARY | 2024-11-22 00:16 | XMS_ITS | Encounter Summary ---
Author Organization [facility] Address [address] [place] [address] Care Team Providers Care Crew Truck Driver Name Role Phone Unavailable Primary Care Provider Unavailabl e Reason for Visit * Reason Onset Date Comments MEDICATION REFILL 03/15/2011 Encounter Details Date Type Department Care Team (Late st Contact Info) Description 03/15/2011 Refill [facility] Medical [facility] - Pediatrics [address] [place] [phone] Sangeeta Robertson MD [address] [place] [phone] MEDICATION REFILL Social History Tobacco Use Types Packs/Day Years [...]
--- OUTSIDE RECORDS SUMMARY | 2024-11-22 00:16 | XMS_ITS | Encounter Summary ---
Author Organization [facility] Address [address] [place] [address] Care Team Providers Care Campus Recruiter Name Role Phone Unavailable Primary Care Provider Unavailabl e Reason for Visit * Reason Onset Date Comments Epistaxis 01/18/2011 Encounter Details Date Type Department Care Team (Late st Contact Info) Description 01/19/2011 Telephone [facility] - Pediatrics [address] [place] [address] [address] [place] [phone] Sangeeta Robertson MD [address] [place] [phone] Epistaxis Social History Tobacco Use Types Packs/Day Years Used Date Smoking Tobacco: Never Assessed Sex and Gender Information Value Date Recorded Sex Assigned at Not on file Gender Identity Not on file Sexual Orientation Not on file documented as of this encounter Miscellaneous Notes * Telephone Encounter - Sangeeta Robertson MD - 01/19/2011 3:34 PM CST Sounds good. ENERGY TECHNICIAN * Telephone Encounter - Abbi Logan RN - 01/19/2011 3:31 PM WIND ENERGY TECHNICIAN Mom says pt developed nose bleed last pm after falling asleep on floor and brother picked him up. Thinks that it was bleeding from only one nostril and that they were able to stop the bleeding [id number] minutes. Pt's grandmother just called her and told her that pt's nose bleeding again. Unsure about whether it has stopped as yet or not. Discussed epistaxis, causes, management of per protocol. Recommended that she call grandmother and discuss proper technique for stopping bleeding if not stopped as yet, to note how long bleeding lasted. Encouraged her to run vaporizer in home, line inside rimof nostrils with vaseline and instruct pt to not rub, blow or pick nose. To call office for furtherepisodes of bleeding, bleeding lasting longer than 10 minutes. Verbalized understanding and willingness to comply. ENERGY TECHNICIAN documented in this encounter Plan of Treatment Not on file documented as of this encounter Visit Diagnoses Not on filedocumented in this encounter
--- OUTSIDE RECORDS SUMMARY | 2024-11-22 00:16 | XMS_ITS | Encounter Summary ---
Author Organization [facility] Health Address [address] [place] [address] Care Team Providers Care Payer Specialist Name Role Phone Unavailable Primary Care Provider Unavailabl e Reason for Visit * Reason Comments Vomiting Encounter Details Date Type Department Care Team (Late st Contact Info) Description 08/24/2011 11:10 AM CDT Office Visit [facility] - Pediatrics [address] [place] [phone] Sangeeta Robertson MD [address] [place] [address] Vomiting alone (Primary Dx) Social History Tobacco Use Types Packs/Day Years Used Date Smoking Tobacco: Never Assessed Sex and Gender Information Value Date Recorded Sex Assigned at Not on file Gender Identity Not on file Sexual Orientation Not on file documented as of this encounter Last Filed Vital Signs Vital Sign Reading Time Taken Comments Blood Pressure 105/68 08/24/2011 11:05 AM CDT Pulse 91 08/24/2011 11:05 AM CDT Temperature 36.8 ??C (98.3 ??F) 08/24/2011 1 1:05 AM CDT Respiratory Rate - - Oxygen Saturation - - Inhaled Oxygen Concentration - - Weight 23.4 kg (51 lb 9.6 oz) 1 11:05 AM CDT Height 122.4 cm (4' 0.2 ) 08/24/2011 11 :05 AM CDT Body Mass Index 15.62 08/24/2011 11:05 AM CDT Body Mass Index Percentile 48.39% 08/24 11:05 AM CDT Growth Chart: CDC (Boys, 2-2 0 Years) documented in this encounter Progress Notes * Sangeeta Robertson MD - 08/24/2011 11:05 AM CDT SUBJECTIVE: Santiago Torres is a 5 y.o. male accompanied by his mother who presents with an episode of vomiting and loss of memory from the time he vomited until he reached the office a few minutes ago. His mother was told that he was in the computer lab today with his class mates, and he vomited. He was sentto the nurses office, and when the nurse asked him what happened he states that he didn't remember v omiting or coming to the nurses office. The school reports that he did not fall, or hit his head orendure any trauma while at school. Mom states that he was his normal self this morning. He has not been recently ill. Currently he is complaining that he has a headache and his stomach hurts. Mom is very concerned because he keeps asking her the same questions over and over again and does not remember asking them. He does state that he was embarrassed because he vomited in front of everyone in his class. OBJECTIVE: BP 105/68 Pulse 91 Temp(Src) 98.3 ??F (Oral) Wt 51 lb 9.6 oz (23.406 kg) BMI 15.62 kg/m2 General appearance: alert, well appearing, and in [...] texture, turgor normal. No rashes or lesions Neuro: No focal deficits, 5/5 muscle strength, cranial nerves intact, deep tendon reflexes intact. Mental status is normal on exam. ASSESSMENT: Vomiting Anxiety secondary to vomiting in public PLAN: Rest and fluids Encourage patient to talk about incident at school to alleviate his concerns documented in this encounter Plan of Treatment Not on file documented as of this encounter Visit Diagnoses Diagnosis Vomiting alone- Primary documented in this encounter
--- OUTSIDE RECORDS SUMMARY | 2024-11-22 00:16 | XMS_ITS | Encounter Summary ---
Author Organization [facility] Address [address] [place] [address] Care Team Providers Care Break Out Man Name Role Phone Unavailable Primary Care Provider Unavailabl e Reason for Visit * Reason Comments Cough x 4 days, throat jerri ts from coughing Fever since last night, hi ghest 101 orally last night Runny Nose just started, green drainage Encounter Details Date Type Department Care Team (Late st Contact Info) Description 11/05/2009 9:00 AM CELLULOID TRIMMER Office Visit [facility] Medical [facility] - Pediatrics [address] [place] [address] [place] [phone] [place] [address] [place] [phone] Acute URI (Primary Dx); Fever Presenting with Conditions Classified Elsewhere Social History Tobacco Use Types Packs/Day Years Used Date Smoking Tobacco: Never Assessed Sex and Gender Information Value Date Recorded Sex Assigned at Not on file Gender Identity Not on file Sexual Orientation Not on file documented as of this encounter Last Filed Vital Signs Vital Sign Reading Time Taken Comments Blood Pressure - - Pulse - - Temperature 36.1 ??C (96.9 ??F) 11/05/2009 9:05 AM CS T Respiratory Rate - - Oxygen Saturation - - Inhaled Oxygen Concentration - - Weight 18.6 kg (41 lb) 11/05/2009 9:05 AM CELLULOID TRIMMER Height 114.3 cm (3' 9 ) 11/05/2009 9:05 AM CELLULOID TRIMMER Bfylyd-pru-Rkaftc Percentile 14.51% 11/05/2009 9 :05 AM CELLULOID TRIMMER Growth Chart: CDC (Boys, 2-2 0 Years) Body Mass Index 14.24 11/05/2009 9:05 AM CELLULOID TRIMMER Body Mass Index Percentile 14.42% 11/05/2009 9:0 5 AM CELLULOID TRIMMER Growth Chart: [facility] (Boys, 2-2 0 Years) documented in this encounter Progress Notes * Barb Gamboa MD - 11/05/2009 9:23 AM CST Santiago Torres, 3 y.o., male here with a complaint of cough and fever. Pt has been ill for 4 days. Cough x4 days, fever last night, runny nose just started Fever Yes, Tmax 101 Runny nose Yes, green Kavon Yes Cough:Yes, day > night Sleep good Appetitiefair Fluids good Medications cough med Phx: used a neb at 4 m/o. No albuteral in a couple of yrs PE: Temp (Src) 96.9 ??F (Axillary) Wt 18.597 kg (41 lb), Alert, NAD, HEENT: Ears Right: Normal Left: Obscurred by wax Nose Discharge clear Throat normal, tonsils without erythema Neck supple, shoddy LAD Chest: no increased work of breathing Lungs Respiratory effort normal, clear to auscultation, normal breath sounds bilaterally Heart Normal PMI. regular rate and rhythm, normal S1, S2, no murmurs or gallops. Impression: 1.URI 2.Fever Plan: Supportive care reviewed. Discussed reasons to call back. Follow up as needed. ULOID TRIMMER documented in this encounter Plan of Treatment Not on file documented as of this encounter Visit Diagnoses Diagnosis Acute URI- Primary Acute upper respiratory infections of unspecified site Fever presenting with conditions classified elsewhere documented in this encounter
--- OUTSIDE RECORDS SUMMARY | 2024-11-22 00:16 | XMS_ITS | Encounter Summary ---
Author Organization [facility] Health Address [address] [place] [address] Care Team Providers Care Screen Roller Name Role Phone Unavailable Primary Care Provider Unavailabl e Reason for Visit * Reason Onset Date Comments Question 07/18/2011 Encounter Details Date Type Department Care Team (Late st Contact Info) Description 07/18/2011 Telephone [facility] - Pediatrics [address] [place] [address] [address] [place] [phone] Sangeeta Robertson MD [address] [place] [phone] Question Social History Tobacco Use Types Packs/Day Years Used Date Smoking Tobacco: Never Assessed Sex and Gender Information Value Date Recorded Sex Assigned at Not on file Gender Identity Not on file Sexual Orientation Not on file documented as of this encounter Miscellaneous Notes * Telephone Encounter - Sangeeta Robertson MD - 07/20/2011 1:39 PM CDT Called and left a message for mother to call me back. * Telephone Encounter - Willie Callaway - 07/18/2011 9:21 AM CDT Santiago is being bullied at school. Mom is concerned, and the school will not help. documented in this encounter Plan of Treatment Not on file documented as of this encounter Visit Diagnoses Not on filedocumented in this encounter
--- OUTSIDE RECORDS SUMMARY | 2024-11-22 00:16 | XMS_ITS | Encounter Summary ---
Author Organization [facility] Health Address [address] [place] [address] Care Team Providers Care Photograph Editor Name Role Phone Unavailable Primary Care Provider Unavailabl e Reason for Visit * Reason Onset Date Comments Headache 08/27/2011 Encounter Details Date Type Department Care Team (Late st Contact Info) Description 08/27/2011 Telephone [facility] - Pediatrics [address] [place] [address] 6 [place] [phone] Sangeeta Robertson MD [address] [place] [phone] Headache Social History Tobacco Use Types Packs/Day Years Used Date Smoking Tobacco: Never Assessed Sex and Gender Information Value Date Recorded Sex Assigned at Not on file Gender Identity Not on file Sexual Orientation Not on file documented as of this encounter Miscellaneous Notes * Telephone Encounter - Sangeeta Robertson MD - 08/27/2011 2:12 PM CDT Spoke with mom and advised to bring him in. * Telephone Encounter - Balwinder Conroy - 08/27/2011 11:10 AM CDT Mom called from work [phone] and said he had headache still through the weekend and this am,gave him tylenol and now the school nurse called her and he has a bad headache. What should they do? She would like to talk to you. documented in this encounter Plan of Treatment Not on file documented as of this encounter Visit Diagnoses Not on filedocumented in this encounter
--- OUTSIDE RECORDS SUMMARY | 2024-11-22 00:16 | XMS_ITS | Encounter Summary ---
Author Organization [facility] Address [address] [place] [address] Care Team Providers Care Evp Operations Name Role Phone Unavailable Primary Care Provider Unavailabl e Reason for Visit * Reason Comments URI sneezing, runny nose with greenish drainage x5 days Cough x5 days Eye Problem itchy, watery eyes w ith greenish exudate x5 days Chest Pain today Encounter Details Date Type Department Care Team (Late st Contact Info) Description 03/10/2010 3:15 PM CDT Office Visit [facility] Medical [facility] - Pediatrics [address] [place] [phone] Barb Gamboa MD [address] [place] [phone] Allergic Rhinitis (Primary Dx); Wheeze Social History Tobacco Use Types Packs/Day Years Used Date Smoking Tobacco: Never Assessed Sex and Gender Information Value Date Recorded Sex Assigned at Not on file Gender Identity Not on file Sexual Orientation Not on file documented as of this encounter Last Filed Vital Signs Vital Sign Reading Time Taken Comments Blood Pressure - - Pulse - - Temperature 36.6 ??C (97.8 ??F) 03/10/2010 3:14 PM CD T Respiratory Rate - - Oxygen Saturation - - Inhaled Oxygen Concentration - - Weight 19 kg (41 lb 12.8 oz) 03/10/2010 3:14 PM CDT Height - - Body Mass Index - - documented in this encounter Progress Notes * Barb Gamboa MD - 03/10/2010 8:33 PM CDT Santiago Torres, 4 y.o., male here with a complaint of upper respiratory symptoms. Symptoms started 5 days ago. Runny nose Yes, green Congestion: Yes Cough:Yes, dry. Today c/o chest pain at school during nap time. Gma also noted that pt was having difficulty breathing when outside yesterday Sneezing: Yes Watery, itchy eyes: Yes Fever No Sleep good Appetitiefair Medications benedryl prn. PE: Temp (Src) 97.8 ??F (Oral) Wt 18.96 kg (41 lb 12.8 oz), Last 1 Encounter Sp02 Readings: No data found for Sp02 Alert, NAD HEENT: Eyes: sclera clear Ears Right: Normal Left: Normal Nose: red, discharge clear, green Throat injected Neck supple, shoddy LAD Chest: no increased work of breathing Lungs mild wheeze heard posterior, left Heart Normal PMI. regular rate and rhythm, normal S1, S2, no murmurs or gallops. Impression: 1.Allergic rhinitis 2.wheeze Plan: 1. Claritin as per orders 2. Rx: albuteral as per orders. With aerochamber * Abbi Logan, ANDRESSA - 03/10/2010 3:16 PM CDT Pt is accompanied to office today by Mom. States pt has had sneezing, runny nose with greenish drainage, nose bleeds, watery, itchy eyesx 5 days. Cough x5 days. Complaining of chest discomfort today with cough. Afeb. Has tried Benadryl for sx without relief. documented in this encounter Plan of Treatment Not on file documented as of this encounter Visit Diagnoses Diagnosis Allergic rhinitis- Primary Allergic rhinitis, cause unspecified Wheeze Wheezing documented in this encounter
--- OUTSIDE RECORDS SUMMARY | 2024-11-22 00:16 | XMS_ITS | Encounter Summary ---
Author Organization [facility] Address [address] [place] [address] Care Team Providers Care Guide Winder Name Role Phone Unavailable Primary Care Provider Unavailabl e Reason for Visit * Reason Comments Allergy Symptoms Itchy runny eyes Encounter Details Date Type Department Care Team (Latest Contact Info) Description 03/05/2011 10:40 AM CDT Office Visit [facility] - Pediatrics [address] [place] [phone] Sangeeta Robertson MD [address] [place] [phone] Conjunctivitis (Primary Dx) Social History Tobacco Use Types Packs/Day Years Used Date Smoking Tobacco: Never Assessed Sex and Gender Information Value Date Recorded Sex Assigned at Not on file Gender Identity Not on file Sexual Orientation Not on file documented as of this encounter Last Filed Vital Signs Vital Sign Reading Time Taken Comments Blood Pressure - - Pulse - - Temperature - - Respiratory Rate - - Oxygen Saturation - - Inhaled Oxygen Concentration - - Weight 22 kg (48 lb 9.6 oz) 03/05/2011 10:17 AM CDT Height - - Body Mass Index - - documented in this encounter Progress Notes * Sangeeta Robertson MD - 03/05/2011 10:20 AM CDT SUBJECTIVE:Santiago Torres is a 5 y.o. male here with his mother with the complaint of eyes runny itching x 2-3 days. Thick goupy yellow drainage x2-3 days. Crusted this morning. Itchy. Sclerae justvery slightly pink today. Yesterday more red/pink colored. No light sensitivity or headaches. OBJECTIVE: Wt 48 lb 9.6 oz (22.045 kg) General appearance: alert, well appearing, and in no distress Eyes: bilateral pink conjunctiva, perrtl, eom intact Ears: bilateral TM's and external ear canals normal Nose: normal and patent, no erythema, discharge or polyps Oropharynx: mucous membranes moist, pharynx normal without lesions Neck: supple, no significant adenopathy Lungs: clear to auscultation, no wheezes, rales or rhonchi, symmetric air entry Heart - regular rate and rhythm, normal S1 and S2, no murmurs ASSESSMENT: Conjunctivitis PLAN: See orders for this visit as documented in the electronic medical record Symptomatic therapy suggested: return office visit prn if symptoms persist or worsen. documented in this encounter Plan of Treatment Not on file documented as of this encounter Visit Diagnoses Diagnosis Conjunctivitis- Primary Conjunctivitis, unspecified documented in this encounter
--- OUTSIDE RECORDS SUMMARY | 2024-11-22 00:16 | XMS_ITS | Encounter Summary ---
Author Organization [facility] Address [address] [place] [address] Care Team Providers Care Novelty Dipper Name Role Phone Unavailable Primary Care Provider Unavailabl e Reason for Visit * Reason Comments Follow-up asthma Encounter Details Date Type Department Care Team (Late st Contact Info) Description 03/16/2011 3:10 PM CDT Office Visit [facility] Medical [facility] - Pediatrics [address] [place] [phone] Sangeeta Robertson MD [address] [place] [phone] Asthma, moderate persistent (HCC) (Primary Dx); Unspecified asthma, with exacerbation (HCC); Other follow-up examination Social History Tobacco Use Types Packs/Day Years Used Date Smoking Tobacco: Never Assessed Sex and Gender Information Value Date Recorded Sex Assigned at Not on file Gender Identity Not on file Sexual Orientation Not on file documented as of this encounter Last Filed Vital Signs Vital Sign Reading Time Taken Comments Blood Pressure - - Pulse - - Temperature 37.2 ??C (99 ??F) 03/16/2011 3:22 PM CDT Respiratory Rate - - Oxygen Saturation - - Inhaled Oxygen Concentration - - Weight 22.7 kg (50 lb) 03/16/2011 3:22 PM CDT Height - - Body Mass Index - - documented in this encounter Progress Notes * Sangeeta Robertson MD - 03/16/2011 3:24 PM CDT SUBJECTIVE: Santiago Torres is a 5 y.o. male seen with his mother for follow up of exacerbation of asthma. Wheezing is described as none. Asthma gets worse in summer and spring. Associated symptoms: no coryza and congestion. Current asthma medications: Proventil MDI (or generic equivalent). Patient denies smoke exposure. Pharmacy would not fill albuterol inhaler OBJECTIVE: Temp(Src) 99 ??F (Temporal Artery) Wt 50 lb (22.68 kg) General appearance: alert, well appearing, and [...] normal S1 and S2, no murmurs ASSESSMENT: Asthma - acute exacerbation resolved Moderate persistent asthma PLAN: See orders for this visit as documented in the electronic medical record RX per orders - Use bronchodilator MDI 2 puff q4h prn, steroid MDI regularly to prevent asthma. Additional suggestions to patient: use a peak flow meter to monitor progress. documented in this encounter Plan of Treatment Not on file documented as of this encounter Visit Diagnoses Diagnosis Asthma, moderate persistent (HCC)- Primary Unspecified asthma Unspecified asthma, with exacerbation (HCC) Unspecified asthma, with exacerbation Other follow-up examination(V67.59) Other follow-up examination documented in this encounter
--- OUTSIDE RECORDS SUMMARY | 2024-11-22 00:16 | XMS_ITS | Encounter Summary ---
Author Organization [facility] Health Address [address] [place] [address] Care Team Providers Care Staff Weapons Officer Name Role Phone Unavailable Primary Care Provider Unavailabl e Reason for Visit * Reason Comments Cough x1 mo Encounter Details Date Type Department Care Team (Late st Contact Info) Description 01/19/2010 3:10 PM MANAGER SERVICES Office Visit [facility] Medical [facility] - Pediatrics [address] [place] [address] 6 [place] [phone] Sangeeta Robertson MD [address] [place] [phone] ACUTE OTITIS MEDIA (Primary Dx) Social History Tobacco Use Types Packs/Day Years Used Date Smoking Tobacco: Never Assessed Sex and Gender Information Value Date Recorded Sex Assigned at Not on file Gender Identity Not on file Sexual Orientation Not on file documented as of this encounter Last Filed Vital Signs Vital Sign Reading Time Taken Comments Blood Pressure - - Pulse - - Temperature 36.4 ??C (97.5 ??F) 01/19/2010 3:11 PM CS T Respiratory Rate - - Oxygen Saturation - - Inhaled Oxygen Concentration - - Weight 19 kg (41 lb 12.8 oz) 01/19/2010 3:11 PM MANAGER SERVICES Height 113.7 cm (3' 8.75 ) 01/19/2010 3:11 PM CS T Body Mass Index 14.68 01/19/2010 3:11 PM MANAGER SERVICES Body Mass Index Percentile 27.16% 01/19/2010 3:1 1 PM MANAGER SERVICES Growth Chart: CDC (Boys, 2-2 0 Years) documented in this encounter Progress Notes * Sangeeta Robertson MD - 01/19/2010 3:13 PM CST SUBJECTIVE: Santiago Torres is a 4 y.o. male brought by mother with complaints of congestion without exudate, sneezing, sore throat (today), productive cough and chills for 1 months Sore Throat :Yes, this am Fever: No reduced activity, normal appetite, normal fluid intake and increased sleepiness. OBJECTIVE: Temp (Src) 97.5 ??F (Oral) Wt 18.96 kg (41 lb 12.8 oz) General appearance: alert, well appearing, and in no distress. Ears: right ear normal, left TM red, dull, bulging Nose: normal and patent, no erythema, discharge or polyps Oropharynx: mucous membranes moist, pharynx normal without lesions Neck: supple, no significant adenopathy Lungs: clear to auscultation, no wheezes, rales or rhonchi, symmetric air entry Heart - regular rate and rhythm, normal S1 and S2, no murmurs ASSESSMENT: otitis media PLAN: See orders for this visit as documented in the electronic medical record Symptomatic therapy suggested: use acetaminophen, ibuprofen prn and return office visit prn if symptoms persist or worsen. GER SERVICES documented in this encounter Plan of Treatment Not on file documented as of this encounter Visit Diagnoses Diagnosis Acute otitis media- Primary Unspecified otitis media documented in this encounter
--- OUTSIDE RECORDS SUMMARY | 2024-11-22 00:16 | XMS_ITS | Encounter Summary ---
Author Organization [facility] Address [address] [place] [address] Care Team Providers Care Ladle Car Operator Name Role Phone Unavailable Primary Care Provider Unavailabl e Reason for Visit * Reason Onset Date Comments Question 08/04/2010 Encounter Details Date Type Department Care Team (Late st Contact Info) Description 08/04/2010 Telephone [facility] - Pediatrics [address] [place] [phone] Barb Gamboa MD [address] [place] [phone] Question Social History Tobacco Use Types Packs/Day Years Used Date Smoking Tobacco: Never Assessed Sex and Gender Information Value Date Recorded Sex Assigned at Not on file Gender Identity Not on file Sexual Orientation Not on file documented as of this encounter Miscellaneous Notes * Telephone Encounter - Lyubov Sweet RN - 08/05/2010 10:37 AM CDT Mother calling with questions regarding the visit today. Spoke with mother explaining to try to useAlbuteral for the weekend and if better to continue to use and wean off as cough gets better. Coughmay also be croup caused by a virus. Grandmother brought child into office and now understands treatment. Will call office with further questions. * Telephone Encounter - Barb Gamboa MD - 08/04/2010 4:26 PM CDT Its hard to tell if he actually has croup (a viral illness that causes a barky cough and hoarse voice) or if he has an asthma cough. Use the albuteral inhaler tonight for the cough to see if it helps. If it helps its due to asthma so continue the albuteral 3-4 time daily over the weekend and then taper as sx improve. If it does not help the cough is viral in nature and it will run its course. Things that will help with croup cough: steamy bathroom, cold air. * Telephone Encounter - Balwinder Conroy - 08/04/2010 4:15 PM CDT Mom called and said she would like to know about the visit today,grandma confused and mom said she does need refill on albuterol inhaler(only few puffs left) and if you want her to do neb treatments-she needs medicine for machine. They use [facility]. Mom at wk till 6 tonight andto call wk nbr [phone]. documented in this encounter Plan of Treatment Not on file documented as of this encounter Visit Diagnoses Not on filedocumented in this encounter
--- OUTSIDE RECORDS SUMMARY | 2024-11-22 00:16 | XMS_ITS | Encounter Summary ---
Author Organization [facility] Health Address [address] [place] [address] Care Team Providers Care Manufacturing Machine Operator Name Role Phone Unavailable Primary Care Provider Unavailabl e Reason for Visit * Reason Onset Date Comments Medication Issue 08/05/2010 Encounter Details Date Type Department Care Team (Late st Contact Info) Description 08/05/2010 Telephone [facility] Medical [facility] - Pediatrics [address] [phone] Barb Gamboa MD [address] [place] [phone] Medication Issue Social History Tobacco Use Types Packs/Day Years Used Date Smoking Tobacco: Never Assessed Sex and Gender Information Value Date Recorded Sex Assigned at Not on file Gender Identity Not on file Sexual Orientation Not on file documented as of this encounter Miscellaneous Notes * Telephone Encounter - Shanice Marks MA - 08/05/2010 9:22 AM CDT Medication that was called in yesterday is not covered. Would like something else. documented in this encounter Plan of Treatment Not on file documented as of this encounter Visit Diagnoses Not on filedocumented in this encounter
--- OUTSIDE RECORDS SUMMARY | 2024-11-22 00:16 | XMS_ITS | Encounter Summary ---
Author Organization [facility] Address [address] [place] [address] Care Team Providers Care President + Publisher Name Role Phone Sangeeta Robertson MD Primary Care Provider [phone] Reason for Visit * Reason Comments Headache Sore Throat x3 days Encounter Details Date Type Department Care Team (Late st Contact Info) Description 03/10/2012 10:10 AM CDT Office Visit [facility] - Pediatrics [address] [place] [address] [address] [place] [address] Sangeeat Robertson MD [address] [place] [phone] Acute pharyngitis (Primary Dx); Allergic Conjunctivitis; Allergic rhinitis Social History Tobacco Use Types Packs/Day Years Used Date Smoking Tobacco: Never Assessed Sex and Gender Information Value Date Recorded Sex Assigned at Not on file Gender Identity Not on file Sexual Orientation Not on file documented as of this encounter Last Filed Vital Signs Vital Sign Reading Time Taken Comments Blood Pressure - - Pulse - - Temperature 36.9 ??C (98.5 ??F) 03/10/2012 10:02 AM C DT Respiratory Rate - - Oxygen Saturation - - Inhaled Oxygen Concentration - - Weight 24.7 kg (54 lb 6.4 oz) 03/10/2012 10:02 A M CDT Height - - Body Mass Index - - documented in this encounter Patient Instructions * Patient Instructions* Sangeeta Robertson MD - 03/10/2012 10:19 AM CDT Santiago Torres most likely has viral sore throat, he tested negative for strep test here in the office, we have send off a throat culture which will be back in 2 days. We will call you with the results. In the mean while, please give him lozenges, and have him do salt and water gargles for pain relief. Use tyelenol per dose chart for pain and fever as needed every four hours. Many prescription and over the counter medicines contain Tylenol (acetaminophen) and Advil( ibuprofen) Do not use/give more than one Tylenol or Advil containing product at a time. documented in this encounter Progress Notes * Abbi Logan RN - 03/12/2012 10:39 AM CDTQuick Note: Phone call placed to patient's home to report negative throat culture results. No answer. Message left reporting the result and to notify office for any further questions or concerns. * Sangeeta Robertson MD - 03/12/2012 10:09 AM CDTQuick Note: Please call the parent and let him/her know the results are normal. * Sangeeta Robertson MD - 03/10/2012 10:03 AM CDT SUBJECTIVE: Santiago Torres is a 6 y.o.brought by aunt who complains of sore throat for 3 day(s). Fever: No Headache:Yes Stomach ache:Yes URI symptoms: Yes, congestion, cough. OBJECTIVE: Temp(Src) 98.5 ??F (Temporal Artery) Wt 54 lb 6.4 oz (24.676 kg) General appearance: alert, well appearing, and in no distress. Ears: bilateral TM's and external ear canals normal Nose: normal and patent, no erythema, discharge or polyps Oropharynx: erythematous and mucous membranes moist, pharynx normal without lesions Neck: supple, no significant adenopathy Lungs: clear to auscultation, no wheezes, rales or rhonchi, symmetric air entry Heart - regular rate and rhythm, normal S1 and S2, no murmurs ASSESSMENT: Pharyngitis possible Strep throat Allergic Rhinitis and Conjunctivitis PLAN: See orders for this visit as documented in the electronic medical record Strep culture sent Symptomatic treatment discussed. documented in this encounter Plan of Treatment Not on file documented as of this encounter Procedures Procedure Name Priority Date/Time Associated Diagnosis Comments CULTURE STREP GROUP A Routine 03/10/2012 10:22 AM CDT Acute pharyngitis STREP A SCREEN - POINT OF CARE (AMB) Routine 03/10/2012 10:07 AM CDT Acute pharyngitis documented in this encounter Results * CULTURE STREP GROUP A (03/10/2012 10:22 AM CDT) Culture Strep A [facility] Comment: ??STREPTOCOCCUS, GROUP A CULTURE ?MICRO NUMBER: ?[id number] ??TEST STATUS: ? FINAL ??SPECIMEN SOURCE: ?? THROAT ??SPECIMEN QUALITY: ??ADEQUATE ??RESULT: ?No beta hemolytic Streptococci isolated Test Performed at: [facility] [address] [place], [place] ??[id number] [place] [employer] DO Miscellaneous samples (specimen) ENTIRE THROAT (SURFACE REGION OF NECK) / Unknown 03/10/2012 10:22 AM CDT 03/10/2012 11:01 PM CDT Sangeeta Robertson MD LAB - MICROBIOLOGY O RDERABLES [facility] [address] [place] [address] * STREP A SCREEN - POINT OF CARE (AMB) (03/10/2012 10:07 AM CDT) Strep A Rapid POCT Negative Negative Strep A Internal Control NEGATIVE - POSITIVE Throat swab (specimen) ENTIRE THROAT (SURFACE REGION OF NECK) / Unknown 03/10/2012 10:07 AM CDT Sangeeta Robertson MD LAB - POINT OF CARE ORDERABLES documented in this encounter Visit Diagnoses Diagnosis Acute pharyngitis- Primary Allergic Conjunctivitis Other chronic allergic conjunctivitis Allergic rhinitis Allergic rhinitis, cause unspecified documented in this encounter Care Teams President + Publisher Relationship Specialty Start Date End Date Sangeeta Robertson MD PCP - General Pediatrics 02/18/12 06/02/13 documented as of this encounter
--- OUTSIDE RECORDS SUMMARY | 2024-11-22 00:16 | XMS_ITS | Encounter Summary ---
Author Organization [facility] Address [facility] [place] [address] Care Team Providers Care Music Instructor Name Role Phone Sangeeta Robertson MD Primary Care Provider [phone] Reason for Visit * Reason Comments Eye Problem x 1 day watery eyes Congestion x1 day Encounter Details Date Type Department Care Team (Latest Contact Info) Description 02/18/2012 3:20 PM CDT Office Visit [facility] - Pediatrics [address] [place] [address] [address] [place] [address] Sangeeta Robertson MD [address] [place] [phone] Allergic Conjunctivitis (Primary Dx); Allergic rhinitis Social History Tobacco Use Types Packs/Day Years Used Date Smoking Tobacco: Never Assessed Sex and Gender Information Value Date Recorded Sex Assigned at Not on file Gender Identity Not on file Sexual Orientation Not on file documented as of this encounter Last Filed Vital Signs Vital Sign Reading Time Taken Comments Blood Pressure - - Pulse - - Temperature 36.8 ??C (98.2 ??F) 02/18/2012 3:17 PM CD T Respiratory Rate - - Oxygen Saturation - - Inhaled Oxygen Concentration - - Weight 24.2 kg (53 lb 6.4 oz) 02/18/2012 3:17 PM CDT Height - - Body Mass Index - - documented in this encounter Progress Notes * Sangeeta Robertson MD - 02/18/2012 3:17 PM CDT SUBJECTIVE: Santiago Torres is a 6 y.o. male brought by mother with complaints of congestion, sneezing, sore throat and watery eyes for 2 days Sore Throat :Yes Fever: No normal activity, mood and playfulness, normal appetite and normal fluid intake. He has been taking pataday and zyrtec 10 mg a day for two weeks. OBJECTIVE: Temp(Src) 98.2 ??F (Temporal Artery) Wt 53 lb 6.4 oz (24.222 kg) General appearance: alert, well appearing, and in no distress. Eyes: bilateral pink conjunctiva, cobblestoning of both conjunctiva Ears: bilateral TM's and external ear canals normal Nose: normal and patent, no erythema, discharge or polyps Oropharynx: mucous membranes moist, pharynx normal without lesions Neck: supple, no significant adenopathy Lungs: clear to auscultation, no wheezes, rales or rhonchi, symmetric air entry Heart - regular rate and rhythm, normal S1 and S2, no murmurs ASSESSMENT: allergic rhinitis and allergic conjunctivitis not responding to pataday PLAN: Flonase nose drops one spray in each nostril Steroids for three days documented in this encounter Plan of Treatment Not on file documented as of this encounter Visit Diagnoses Diagnosis Allergic Conjunctivitis- Primary Other chronic allergic conjunctivitis Allergic rhinitis Allergic rhinitis, cause unspecified documented in this encounter Care Teams Music Instructor Relationship Specialty Start Date End Date Sangeeta Robertson MD PCP - General Pediatrics 02/18/12 06/02/13 documented as of this encounter
--- OUTSIDE RECORDS SUMMARY | 2024-11-22 00:16 | XMS_ITS | Encounter Summary ---
Author Organization [facility] Address [address] [place] [address] Care Team Providers Care Resident Care Supervisor Name Role Phone Unavailable Primary Care Provider Unavailabl e Reason for Visit * Reason Comments Imm Inj Encounter Details Date Type Department Care Team (Latest Contact Info) Description 10/05/2011 9:10 AM HAIR SPRING CUTTER Clinical Support [facility] Medical [facility] - Pediatrics [address] [place] [phone] Need for prophylactic vaccination and inoculation against influenza Social History Tobacco Use Types Packs/Day Years Used Date Smoking Tobacco: Never Assessed Sex and Gender Information Value Date Recorded Sex Assigned at Not on file Gender Identity Not on file Sexual Orientation Not on file documented as of this encounter Last Filed Vital Signs Vital Sign Reading Time Taken Comments Blood Pressure - - Pulse - - Temperature 37.2 ??C (99 ??F) 10/05/2011 9:20 AM HAIR SPRING CUTTER Respiratory Rate - - Oxygen Saturation - - Inhaled Oxygen Concentration - - Weight - - Height - - Body Mass Index - - documented in this encounter Plan of Treatment Not on file documented as of this encounter Visit Diagnoses Diagnosis Need for prophylactic vaccination and inoculation against influenza- Primary documented in this encounter
--- OUTSIDE RECORDS SUMMARY | 2024-11-22 00:16 | XMS_ITS | Encounter Summary ---
Author Organization [facility] Address [address] [place] [address] Care Team Providers Care Candy Dipper Name Role Phone Unavailable Primary Care Provider Unavailabl e Reason for Visit * Reason Onset Date Comments Allergy Symptoms 03/09/2011 Asthma 03/09/2011 [facility] 03/09/2011 Encounter Details Date Type Department Care Team (Late st Contact Info) Description 03/09/2011 Telephone [facility] - Pediatrics [address] [place] [address] [address] [place] [address] Sangeeta Robertson MD [address] [place] [address] Allergy Symptoms; Asthma; [facility] Social History Tobacco Use Types Packs/Day Years Used Date Smoking Tobacco: Never Assessed Sex and Gender Information Value Date Recorded Sex Assigned at Not on file Gender Identity Not on file Sexual Orientation Not on file documented as of this encounter Miscellaneous Notes * Telephone Encounter - Abbi Logan RN - 03/09/2011 11:40 AM CDT Mom informed. Verbalizes understanding and willingness to comply. Will call back to schedule appointment in a little while. * Telephone Encounter - Sangeeta Robertson MD - 03/09/2011 11:34 AM CDT Have him come in. * Telephone Encounter - Willie Callaway - 03/09/2011 11:13 AM CDT Santiago had an asthma attack last night, his peak flow is between 70 and 80. He is using his inhaler, and mom was wondering if you want him to use his nebulizer and if so he needs a refill. Santiago also has sneezing and itchy eyes. He is not currently taking anything for allergies. Mom would like some allergy eye drops and was not sure if he should be taking something for his allergies. documented in this encounter Plan of Treatment Not on file documented as of this encounter Visit Diagnoses Not on filedocumented in this encounter
--- OUTSIDE RECORDS SUMMARY | 2024-11-22 00:16 | XMS_ITS | Encounter Summary ---
Author Organization [facility] Address [address] [place] [address] Care Team Providers Care Night Clerk Auditor Name Role Phone Unavailable Primary Care Provider Unavailabl e Reason for Visit * Reason Comments Rash Encounter Details Date Type Department Care Team (Late st Contact Info) Description 05/01/2010 3:20 PM CDT Office Visit [facility] - Pediatrics [address] [place] [phone] Sangeeta Robertson MD [address] [place] [phone] Erythema Multiforme Minor (Primary Dx) Social History Tobacco Use Types Packs/Day Years Used Date Smoking Tobacco: Never Assessed Sex and Gender Information Value Date Recorded Sex Assigned at Not on file Gender Identity Not on file Sexual Orientation Not on file documented as of this encounter Last Filed Vital Signs Vital Sign Reading Time Taken Comments Blood Pressure - - Pulse - - Temperature 37.4 ??C (99.4 ??F) 05/01/2010 3:29 PM CD T Respiratory Rate - - Oxygen Saturation - - Inhaled Oxygen Concentration - - Weight - - Height - - Body Mass Index - - documented in this encounter Progress Notes * Sangeeta Robertson MD - 05/01/2010 3:26 PM CDT SUBJECTIVE: Santiago Torres, 4 y.o., male here with mother for evaluation of a rash. Rash has been present for2 days. Location of rash is all over Rash has spread: No Pruritic: Yes Painful: No Transient: No Fever: No OBJECTIVE: PE: There were no vitals taken for this visit. Alert, NAD Skin: Erythematous, patches on trunk and arms, with a clear center Heart: Regular rate and rhythm, no murmur Lungs: CTA bilaterally, no wheeze or rales IMPRESSION: Erythema multiforme minor PLAN: Benadryl prn for itching. documented in this encounter Plan of Treatment Not on file documented as of this encounter Visit Diagnoses Diagnosis Erythema multiforme minor- Primary documented in this encounter
--- OUTSIDE RECORDS SUMMARY | 2024-11-22 00:16 | XMS_ITS | Encounter Summary ---
Author Organization [facility] Address [address] [place] [address] Care Team Providers Care Avionics Test Technician Name Role Phone Unavailable Primary Care Provider Unavailabl e Reason for Visit * Reason Comments Sore Throat afebrile Rhinitis nose congested; can 't breath out of both nares Cough Headache Encounter Details Date Type Department Care Team (Late st Contact Info) Description 06/06/2011 9:15 AM CDT Office Visit [facility] - Pediatrics [address] [place] [address] Barb Gamboa MD [address] [place] [phone] Viral pharyngitis (Primary Dx) Social History Tobacco Use Types Packs/Day Years Used Date Smoking Tobacco: Never Assessed Sex and Gender Information Value Date Recorded Sex Assigned at Not on file Gender Identity Not on file Sexual Orientation Not on file documented as of this encounter Last Filed Vital Signs Vital Sign Reading Time Taken Comments Blood Pressure - - Pulse - - Temperature 36.8 ??C (98.3 ??F) 06/06/2011 9:06 AM CD T Respiratory Rate - - Oxygen Saturation - - Inhaled Oxygen Concentration - - Weight 22.3 kg (49 lb 3.2 oz) 06/06/2011 9:06 AM CDT Height 122.6 cm (4' 0.25 ) 06/06/2011 9:06 AM CD T Body Mass Index 14.86 06/06/2011 9:06 AM CDT Body Mass Index Percentile 28.72% 06/06/2011 9:0 6 AM CDT Growth Chart: CDC (Boys, 2-2 0 Years) documented in this encounter Progress Notes * Barb Gamboa MD - 06/06/2011 9:37 AM CDT Santiago Torres. 5 y.o., male, here for evaluation of sore throat. Symptoms started 2-3 days ago. Fever: No Runny Nose: Yes, clear and yellow Congestion: Yes Cough: Yes, wet Headache: Yes Abd Pain: No Rash: No Sleep: good Appetite: good Fluids: good Sick contacts with Strep: No Medications: zyrtec prn, albuteral prn PE: Temp(Src) 98.3 ??F (Temporal Artery) Wt 49 lb 3.2 oz (22.317 kg) BMI 14.86 kg/m2 Alert NAD SHEENT: Skin: no observable rash Ears: Left: Normal Right: Normal Throat:injected, +drainage Tonsils: 2+, mild erythema, no exudates or petechiea Neck: supple, shoddy LAD Heart: Normal PMI. regular rate and rhythm, normal S1, S2, no murmurs or gallops. Lungs: Clear to auscultation and Normal breath sounds bilaterally Rapid Strep: negative Impression: Viral Pharyngitis Plan: Supportive care Fever control and encourage fluids. Follow up prn. documented in this encounter Plan of Treatment Not on file documented as of this encounter Procedures Procedure Name Priority Date/Time Associated Diagnosis Comments STREP A SCREEN - POINT OF CARE (AMB) Routine 06/06/2011 9:30 AM CDT Viral pharyngitis documented in this encounter Results * STREP A SCREEN - POINT OF CARE (AMB) (06/06/2011 9:30 AM CDT) Strep A Rapid POCT POS NEGATIVE - POSITVE Strep A Internal Control NEGATIVE - POSITIVE ENTIRE THROAT (SURFACE REGION OF NECK) / Unknown 06/06/2011 9:30 AM CDT Barb Gamboa MD LAB - POINT OF CARE ORDERABLES documented in this encounter Visit Diagnoses Diagnosis Viral pharyngitis- Primary Acute pharyngitis documented in this encounter
--- OUTSIDE RECORDS SUMMARY | 2024-11-22 00:16 | XMS_ITS | Encounter Summary ---
Author Organization [facility] Address [address] [place] [address] Care Team Providers Care Purchaser [employer]otive Parts Name Role Phone Unavailable Primary Care Provider Unavailabl e Reason for Visit * Reason Comments Headache Encounter Details Date Type Department Care Team (Late st Contact Info) Description 08/27/2011 1:30 PM CDT Office Visit [facility] - Pediatrics [address] [place] [phone] Sangeeta Robertson MD [address] [place] [address] Tension headache (Primary Dx) Social History Tobacco Use Types Packs/Day Years Used Date Smoking Tobacco: Never Assessed Sex and Gender Information Value Date Recorded Sex Assigned at Not on file Gender Identity Not on file Sexual Orientation Not on file documented as of this encounter Last Filed Vital Signs Vital Sign Reading Time Taken Comments Blood Pressure 106/61 08/27/2011 1:31 PM CDT Pulse - - Temperature 37 ??C (98.6 ??F) 08/27/2011 1:31 PM CDT Respiratory Rate - - Oxygen Saturation - - Inhaled Oxygen Concentration - - Weight 23 kg (50 lb 9.6 oz) 08/27/2011 1:31 PM CDT Height - - Body Mass Index 15.31 08/24/2011 11:05 AM CDT Body Mass Index Percentile 39.97% 08/27/2011 1:3 1 PM CDT Growth Chart: CDC (Boys, 2-2 0 Years) documented in this encounter Progress Notes * Tali Hoffman - 08/27/2011 1:32 PM CDT SUBJECTIVE: Santiago Torres is a 5 y.o. male who complains of headaches for 4 Days. He was seen in the office on 08/24/11 with complaints of an episode of vomiting and memory loss of the event. He was diagnosed with anxiety over the situation. He has had a headache since Saturday, and the pain seems to wax and wane. He states that sleeping makes his head feel better. He does not currently have a headache. Mom states that he seems sleepier than normal and its harder to wake him up for school. She also states that over the weekend he wanted to lay around more than usual and had episodes of lethargy. He has also been telling his brother stories that have not happened. Mom states that his memory seems improved since Saturday. He still does not remember vomiting in class. He denies blurry vision, dizziness, or limb weakness. Description of pain: throbbing pain Severity: unable to evaluate Associated symptoms: None Pain relief: acetaminophen. Precipitating factors: none that they are aware of He denies a history of recent head injury Prior neurological history: negative for no neurological problems. Neurologic Review of Systems - . Fever: No Vomiting: No Awaken at night with headache: No Photophobia: No Aura preceding headache: No Dizziness: No Vision changes: No Muscle Weakness No Current Outpatient Prescriptions Medication Sig Dispense Refill ??? albuterol HFA (VENTOLIN HFA) 8 gram inhaler Inhale 2 Puffs by mouth every 4 hours as needed forWheezing and Cough. 1 Inhaler 1 ??? olopatadine (PATADAY) 0.2 % ophthalmic solution Instill 1 Drop into both eyes daily. 1 Bottle 3 ??? trimethoprim-polymyxin B (POLYTRIM) 22318-0.1 UNIT/ML-% ophthalmic solution 2 Drops every 4 [...] 2 times daily. 10 day supply 0 FAMILY HISTORY: Family history of migraine or other headaches: Yes Family history of Cerbral aneurysm: Maternal great grandmother has hx of strokes OBJECTIVE: BP 106/61 Temp(Src) 98.6 ??F (Temporal) Wt 50 lb 9.6 oz (22.952 kg) General appearance: alert, well appearing, and in no distress. Head: normocephalic, atraumatic Ears: bilateral TM's and external ear canals normal Nose: normal and patent, no erythema, discharge or polyps Oropharynx: mucous membranes moist, pharynx normal without lesions Neck: supple, no significant adenopathy Lungs: clear to auscultation, no wheezes, rales or rhonchi, symmetric air entry Heart - regular rate and rhythm, normal S1 and S2, no murmurs Neurological Exam: alert, oriented, normal speech, no focal findings or movement disorder noted. Cranial nerves and reflexes intact ASSESSMENT: Tension headache PLAN: Recommendations: lie in darkened room and apply cold packs prn for pain Patient reassured that neurodiagnostic workup not indicated from benign H & P Tylenol if needed, but limit the amount to decrease the potential for rebound headaches Call the office immediately if he becomes lethargic, has blurred vision or slurred speech documented in this encounter Plan of Treatment Not on file documented as of this encounter Visit Diagnoses Diagnosis Tension headache- Primary documented in this encounter
--- OUTSIDE RECORDS SUMMARY | 2024-11-22 00:16 | XMS_ITS | Encounter Summary ---
Author Organization [facility] Address [address] [place] [address] Care Team Providers Care Ear Nose Throat Physician Name Role Phone Unavailable Primary Care Provider Unavailabl e Reason for Visit * Reason Onset Date Comments Results 03/12/2011 Encounter Details Date Type Department Care Team (Late st Contact Info) Description 03/12/2011 Telephone [facility] - Pediatrics [address] [place] [phone] Sangeeta Robertson MD [address] [place] [address] Results Social History Tobacco Use Types Packs/Day Years Used Date Smoking Tobacco: Never Assessed Sex and Gender Information Value Date Recorded Sex Assigned at Not on file Gender Identity Not on file Sexual Orientation Not on file documented as of this encounter Miscellaneous Notes * Telephone Encounter - Neema Montelongo - 03/12/2011 9:50 AM CDT [facility] called and said they were unable to preform A sputum culture because there was no specimen Found. Can call them at [phone] option 1 then Option 2 for further info. documented in this encounter Plan of Treatment Not on file documented as of this encounter Visit Diagnoses Not on filedocumented in this encounter
== END 2024-11-15 04:30 | disposition home or self-care (01) ==
PROVIDERS: Emergency Provider Emergency Medicine
DX: S09.90XA Unspecified injury of head, initial encounter (principal); V00.311A Fall from snowboard, initial encounter
CPT/HCPCS: 70450; 99284